=== PATIENT | male | born 1965 | race Two or more races ===

== ENCOUNTER 2018-10-17 17:10 | Inpatient (IN) | payer MEDICAID ==
[~2018-10-17] VITALS: Ht 167.6 cm; Wt 77.6 kg
--- NOTE | 2018-10-17 17:58 | NUR ---
initial contact with pt no acute distress , BIB RA , placed on cardaic monitor , VS stable as noted, denies complaints at present, IV LAC # 18 started by EMS - draws blood and flushes easily - labd drawn and placed on stand by, waiting for MD dela cruz
[2018-10-17 18:20] LABS: BASOPHILS % (AUTO) 0.5 % (0.0-2.0); EOSINOPHILS % (AUTO) 3.7 % (0.0-6.0); HEMATOCRIT 31 % (39-51); HEMOGLOBIN 10.7 g/dL (13.5-17.5); LYMPHOCYTES # (AUTO) 1.8 /CMM (0.8-4.8); LYMPHOCYTES % (AUTO) 31.8 % (20.0-44.0); MEAN CORPUSCULAR HGB CONC 34 g/dl (31.0-36.0); MEAN CORPUSCULAR VOLUME 92 fL (80-96); MONOCYTES # (AUTO) 0.5 /CMM (0.1-1.30); NEUTROPHILS # (AUTO) 3.2 /CMM (1.8-8.9); PLATELET COUNT (AUTO) 265 /CMM (150-450); RED BLOOD CELL COUNT(AUTO) 3.38 MIL/uL (4.5-6.0); WHITE BLOOD COUNT (AUTO) 5.7 K/uL (4.3-11.0)
[2018-10-17] MEDS ORDERED: ASPIRIN 81 MG TAB.CHEW ONE (18:23)
[2018-10-17 18:27] LABS: CARBON DIOXIDE 27 mmol/L (21-32); CHLORIDE 107 mmol/L (98-107); CREATININE 1.9 mg/dL (0.6-1.3); GLUCOSE 97 mg/dL (74-106); POTASSIUM 5.2 mmol/L (3.5-5.1); SODIUM SERUM 139 mmol/L (136-145); UREA NITROGEN, BLOOD 40 mg/dL (7-18)
--- NOTE | 2018-10-17 18:27 | NUR ---
nasal swab for influenza A/B obtained and sent
[2018-10-17] MEDS ORDERED: ASPIRIN 81 MG TAB.CHEW PO ONE (18:30)
[2018-10-17] MEDS ORDERED: IV NS 0.9% 500 ML BAG IV ONE (18:30)
[2018-10-17] MEDS ORDERED: GABA-532 PO (18:46)
[2018-10-17] MEDS ORDERED: ESCI10TA PO (18:46)
[2018-10-17] MEDS ORDERED: PIOG45TA5 PO (18:46)
[2018-10-17] MEDS ORDERED: GLIP5TAB13 PO (18:46)
[2018-10-17] MEDS ORDERED: FERR325T23 PO (18:46)
[2018-10-17] MEDS ORDERED: MECL12.582 PO (18:46)
[2018-10-17] MEDS ORDERED: TAMS-12 PO (18:46)
--- NOTE | 2018-10-17 18:57 | NUR ---
urine sent to lab
[2018-10-17 19:01] LABS: APPEARANCE,URINE Clear (CLEAR); BILIRUBIN,URINE Negative (NEGATIVE); BLOOD, URINE Negative Ery/uL (NEGATIVE); COLOR,URINE Yellow (YELLOW); KETONES,URINE Trace (NEGATIVE); LEUKOCYTE ESTERASE ,URINE Negative (NEGATIVE); NITRITE, URINE Negative (NEGATIVE); PROTEIN,URINE 30 mg/dl (NEGATIVE); UGLUCOSE 100 MG/DL mg/dL (NEGATIVE); UROBILINOGEN,URINE 0.2 EU/dL (0.2)
--- NOTE | 2018-10-17 19:20 | NUR ---
report to Patricia Darby to assume care
--- NOTE | 2018-10-17 19:20 | NUR ---
RECEIVED REPORT FROM ROSA MARIA COHEN FOR DONG. PT RESTING COMFORTABLY IN BED. VITAL SIGNS STABLE. WILL CONTINUE TO MONITOR
[2018-10-17 19:36] LABS: BACTERIA,URINE Moderate /HPF (None Seen); RBC,URINE 0-2 /HPF (0-2); SQUAMOUS EPITHELIAL CELL,UR Moderate /HPF (None Seen)
[2018-10-17 19:37] LABS: HYALINE CASTS, URINE Moderate /LPF (None Seen); URINE AMORPHOUS URATE Many /HPF (None Seen)
[2018-10-17] MEDS ORDERED: CEFTRIAXONE 1 G in IV D5W 50 ML IV ONE (20:00)
[2018-10-17] MEDS ORDERED: CEFTRIAXONE 1GM BAG (ER ONLY) 50 ML IV ONE (20:21)
--- NOTE | 2018-10-17 21:32 | NUR ---
GAVE REPORT TO EBENEZER COHEN FOR DONG
[2018-10-17 21:40] VITALS: BP 129/82
--- NOTE | 2018-10-17 21:40 | NUR ---
RN NOTES RECEIVED PT. FROM ER WITH DX. OF ACUTE KIDNEY INJURY, RWANDAN SPEAKING, A/OX4. SR ON TELE MONITOR HR-75, ADMISSION INSTRUCTION WAS GIVEN WITH THE HELP OF MUSIC PROFESSOR , DENIES PAIN, NO SOB, CALL LIGHT WITHIN REACH, SIDERAILSUPX2, CONTINUE TO MONITOR
--- NOTE | 2018-10-17 21:40 | NUR ---
TRANSFERRED PT PER ACLS PROTOCOL
[2018-10-17] MEDS ORDERED: ONDANSETRON HCL/PF 4 MG/2 ML VIAL IVP PRN (22:00)
[2018-10-17] MEDS ORDERED: MAGNESIUM HYDROXIDE 30 ML UDC PO PRN (22:00)
[2018-10-17] MEDS ORDERED: Z GUARD REMEDY 2 OZ OINT TP PRN (22:00)
[2018-10-17] MEDS ORDERED: ZOLPIDEM TARTRATE 5 MG TABLET PO PRN (22:00)
[2018-10-17] MEDS ORDERED: HYDROCODONE/APAP 5/325MG 1 EACH TABLET PO PRN (22:00)
[2018-10-18] MEDS: IV NS 0.9% 1,000 ML IV PRN ×2 (00:13→20:35)
[2018-10-18 00:28] VITALS: BP 91/57
--- NOTE | 2018-10-18 01:00 | NUR ---
RN LILA OCHOA-MAIKEL CAME AND MADE ROUNDS, ORDER NOTED AND CARRIED OUT
[2018-10-18 04:00] VITALS: BP_SYST 110; BP_SYST 90; BP_SYST 91; BP_DIAS 45; BP_DIAS 55; BP_DIAS 70
--- NOTE | 2018-10-18 06:39 | NUR ---
RN NOTES AWAKE, MORNING CARE RENDERED, DENIES PAIN, NO SOB, CALL LIGHT WITHIN REACH, SIDERAILSUPX2, PT. NEEDS ATTENDED
--- NOTE | 2018-10-18 07:32 | NUR ---
RN OPENING NOTES PT WAS RECEIVED IN BED AT LOWEST AND LOCKED POSITION WITH SIDE RAILS UP X2, A/O X4 AZERI SPEAKING, BREATHING EVEN AND UNLABORED ON RA, NO S/S OF PAIN OR DISTRESS CURRENTLY NOTED, IV IS PATENT AND INTACT, SAFETY PRECAUTIONS IN PLACE, CALL LIGHT WITHIN REACH, WILL MONITOR ACCORDINGLY
[2018-10-18 07:51] LABS: BASOPHILS % (AUTO) 0.4 % (0.0-2.0); EOSINOPHILS % (AUTO) 4.1 % (0.0-6.0); HEMATOCRIT 29 % (39-51); HEMOGLOBIN 9.9 g/dL (13.5-17.5); LYMPHOCYTES % (AUTO) 40.7 % (20.0-44.0); MEAN CORPUSCULAR HGB CONC 34 g/dl (31.0-36.0); MEAN CORPUSCULAR VOLUME 92 fL (80-96); MONOCYTES # (AUTO) 0.4 /CMM (0.1-1.30); MONOCYTES % (AUTO) 8.1 % (2.0-12.0); NEUTROPHILS # (AUTO) 2.3 /CMM (1.8-8.9); NEUTROPHILS % (AUTO) 46.7 % (43.0-81.0); PLATELET COUNT (AUTO) 239 /CMM (150-450); RED BLOOD CELL COUNT(AUTO) 3.16 MIL/uL (4.5-6.0)
[2018-10-18 08:00] VITALS: BP 135/85
[2018-10-18 08:02] LABS: CALCIUM, SERUM 8.6 mg/dL (8.5-10.1); CREATININE 1.4 mg/dL (0.6-1.3); MAGNESIUM 1.9 mg/dL (1.8-2.4); PHOSPHORUS 3.6 mg/dL (2.5-4.9); POTASSIUM 4.9 mmol/L (3.5-5.1)
[2018-10-18] MEDS: glipiZIDE 5 MG TABLET PO SCH ×2 (08:03→16:02)
[2018-10-18] MEDS: GABAPENTIN 100 MG CAPSULE PO SCH ×2 (08:03→16:02)
[2018-10-18] MEDS: ESCITALOPRAM OXALATE (10 MG) 10 MG TABLET PO SCH (08:04)
[2018-10-18 08:55] LABS: IRON, SERUM 84 ug/dl (50-175); TOTAL IRON BINDING CAPACITY 292 ug/dl (250-450)
[2018-10-18] MEDS ORDERED: TAMSULOSIN 0.4 MG CAP.SR.24H PO SCH (09:00)
[2018-10-18] MEDS ORDERED: PIOGLITAZONE HCL 15 MG TABLET PO SCH (09:00)
[2018-10-18] MEDS ORDERED: FERROUS SULFATE (325 MG) 325 MG/TAB TABLET PO SCH (09:00)
[2018-10-18 09:07] LABS: FERRITIN 133 ng/mL (8-388); THYROID STIMULATING HORMONE 0.976 uIU/mL (0.358-3.74)
[2018-10-18] MEDS: ACETAMINOPHEN 325 MG TABLET PO PRN ×2 (09:12→15:23)
--- NOTE | 2018-10-18 09:15 | NUR ---
RN NOTES PT COMPLAINING OF A HEADACHE AT THIS TIME, PRN TYLENOL WAS GIVEN. WILL MONITOR ACCORDINGLY
--- NOTE | 2018-10-18 15:24 | NUR ---
RN NOTES PT COMPLAINING OF HEADACHE AGAIN AT THIS TIME, PRN TYLENOL WAS GIVEN. WILL MONITOR ACCORDINGLY
[2018-10-18 17:00] VITALS: BP 94/62
--- NOTE | 2018-10-18 17:27 | NUR ---
MS/PARENT AIDE PATIENT TRANSFERRED FROM MS 3 TO MS 2 IN STABLE CONDITION. A/O X 4, YAKUT SPEAKING. NO SIGNS OF ACUTE DISTRESS. NO COMPLAIN OF PAIN OR DISCOMFORT. ALL NEEDS ATTENDED TO. REPORT GIVEN BY NOEL MONTANEZ. CALL LIGHT WITHIN REACH. WILL CONTINUE TO MONITOR TO ENSURE SAFETY.
--- NOTE | 2018-10-18 17:38 | NUR ---
RN NOTE PT TRANSFERRED TO MS2 WITH REPORT GIVEN CHRISTINE AT THIS TIME
--- NOTE | 2018-10-18 18:02 | NUR ---
Patient primary language is Turkish. He is alert and pleasant, lives locally with spouse. He is ambulatory, uses a cane as needed, independent with adl's. His pcp is Dr. Daniel Zarco. Family involved and supportive. He plan to return home once discharge. Addendum: 10/18/18 at 1802 by JOHN WYATT RN Amended: Links added.
--- NOTE | 2018-10-18 18:08 | NUR ---
MS/RN CLOSING NOTE PATIENT IN BED IN STABLE CONDITION. A/O X 4. GREEK SPEAKING. NO SIGNS OF ACUTE DISTRESS. NO COMPLAIN OF PAIN OR DISCOMFORT. ALL NEEDS ATTENDED TO. CALL LIGHT WITHIN REACH. WILL ENDORSE TO NEXT SHIFT FOR CONTINUITY OF CARE.
--- NOTE | 2018-10-18 19:00 | NUR ---
RN NOTES RECEIVE PT IN THE BED A/O X 3 IN STABLE CONDITION, NOT IN DISTRESS, SAFETY MEASURES IN PLACE. WILL CONTINUE TO MONITOR.
[2018-10-18 19:58] VITALS: BP 134/74
[2018-10-18 20:00] VITALS: BP 134/74
[2018-10-18] MEDS ORDERED: DEXTROSE 50%-WATER 50 ML DISP.SYRIN IV PRN (20:00)
[2018-10-18] MEDS ORDERED: CEFTRIAXONE 1 G in IV D5W 50 ML IV SCH (20:00)
[2018-10-18] MEDS: BLOOD SUGAR DIAGNOSTIC 1 EACH STRIP IN SCH (21:20)
[2018-10-18] MEDS: INSULIN REGULAR, HUMAN 100 UNIT/ML 3 ML VIAL SQ PRN (21:20)
[2018-10-18] MEDS: TAMSULOSIN 0.4 MG CAP.SR.24H PO SCH (21:28)
[2018-10-19] MEDS: IV NS 0.9% 1,000 ML IV PRN ×3 (03:20→18:16)
[2018-10-19] MEDS: BLOOD SUGAR DIAGNOSTIC 1 EACH STRIP IN SCH ×4 (05:59→21:02)
[2018-10-19] MEDS: INSULIN REGULAR, HUMAN 100 UNIT/ML 3 ML VIAL SQ PRN ×3 (06:00→21:21)
[2018-10-19 06:34] LABS: BASOPHILS % (AUTO) 0.6 % (0.0-2.0); EOSINOPHILS % (AUTO) 4.8 % (0.0-6.0); HEMATOCRIT 31 % (39-51); HEMOGLOBIN 10.4 g/dL (13.5-17.5); LYMPHOCYTES # (AUTO) 2.3 /CMM (0.8-4.8); LYMPHOCYTES % (AUTO) 43.4 % (20.0-44.0); MEAN CORPUSCULAR HGB CONC 34 g/dl (31.0-36.0); MEAN CORPUSCULAR VOLUME 92 fL (80-96); MONOCYTES # (AUTO) 0.4 /CMM (0.1-1.30); MONOCYTES % (AUTO) 7.9 % (2.0-12.0); NEUTROPHILS # (AUTO) 2.3 /CMM (1.8-8.9); NEUTROPHILS % (AUTO) 43.3 % (43.0-81.0); PLATELET COUNT (AUTO) 242 /CMM (150-450); RED BLOOD CELL COUNT(AUTO) 3.36 MIL/uL (4.5-6.0); WHITE BLOOD COUNT (AUTO) 5.4 K/uL (4.3-11.0)
--- NOTE | 2018-10-19 06:35 | NUR ---
RN CLOSING NOTE PT IN BED ASLEEP AND EASILY AWAKEN 02 SAT 100% TOLERATING ROOM AIR. STABLE CONDITION, NOT IN DISTRESS. RESPIRATIONS EVEN AND UNLABORED. NURSING CARE RENDERED, NO COMPLAIN OF PAIN KEPT CLEAN AND DRY AND COMFORT, SAFETY MEASURES IN PLACE, CALL LIGHT WITHIN REACH. WILL ENDORSE TO SENIOR AUDIT MANAGER FOR DONG.
[2018-10-19 06:42] LABS: ALANINE AMINOTRANSFERASE 34 U/L (12-78); ALBUMIN 3.3 g/dL (3.4-5.0); ALKALINE PHOSPHATASE 81 U/L (46-116); ASPARTATE AMINOTRANSFERASE 17 U/L (15-37); BILIRUBIN,TOTAL 0.4 mg/dL (0.2-1.0); CALCIUM, SERUM 8.5 mg/dL (8.5-10.1); CARBON DIOXIDE 23 mmol/L (21-32); CHLORIDE 107 mmol/L (98-107); CREATININE 1.5 mg/dL (0.6-1.3); GLUCOSE 91 mg/dL (74-106); MAGNESIUM 1.8 mg/dL (1.8-2.4); PHOSPHORUS 3.4 mg/dL (2.5-4.9); POTASSIUM 4.3 mmol/L (3.5-5.1); SODIUM SERUM 140 mmol/L (136-145); TOTAL PROTEIN, SERUM 7.2 g/dL (6.4-8.2); UREA NITROGEN, BLOOD 29 mg/dL (7-18)
--- NOTE | 2018-10-19 07:16 | NUR ---
MS/RN OPENING NOTE PATIENT IN BED IN STABLE CONDITION. A/O X 4, KYRGYZ SPEAKING. NO SINGS OF ACUTE DISTRESS. NO COMPLAIN OF PAIN OR DISCOMFORT. ALL NEEDS ATTENDED TO. CALL LIGHT WITHIN REACH. WILL CONTINUE TO MONITOR TO ENSURE SAFETY.
[2018-10-19 08:00] VITALS: BP 141/83
[2018-10-19] MEDS: ESCITALOPRAM OXALATE (10 MG) 10 MG TABLET PO SCH (08:02)
[2018-10-19] MEDS: ACETAMINOPHEN 325 MG TABLET PO PRN (08:02)
[2018-10-19 16:00] VITALS: BP 148/85
--- NOTE | 2018-10-19 18:33 | NUR ---
MS/RN CLOSING NOTE PATIENT IN BED IN STABLE CONDITION. A/O X 4, DANISH SPEAKING. NO SIGNS OF ACUTE DISTRESS. NO COMPLAIN OF PAIN OR DISCOMFORT. ALL NEEDS ATTENDED TO. CALL LIGHT WITHIN REACH. WILL ENDORSE TO NEXT SHIFT FOR CONTINUITY OF CARE.
--- NOTE | 2018-10-19 19:00 | NUR ---
RN NOTES RECEIVE PT IN THE BED A/O X 3 IN STABLE CONDITION, NOT IN DISTRESS, SAFETY MEASURES IN PLACE. WILL CONTINUE TO MONITOR.
[2018-10-19 20:00] VITALS: BP 141/81
[2018-10-19 20:17] VITALS: BP 141/81
[2018-10-19] MEDS: TAMSULOSIN 0.4 MG CAP.SR.24H PO SCH (21:02)
--- NOTE | 2018-10-19 23:53 | NUR ---
PT REQUESTED TO CHECK HIS BS PER PT HE FEELS HIS BLOOD SUGAR IS LOW, RECHECKED SUGAR 40 MG/DL PT REQUESTED TO DRINK 8 OZ OF ORANGE JUICE WILL CONTINUE TO MONITOR Addendum: 10/20/18 at 0116 by ANNE-MARIE SORIA RN PER PT WANTS TO DRINK ORANGE JUICE FIRST BEFORE GIVING D50 DESPITE EXPLAINING RISKS AND BENEFITS WILL MONITOR
--- NOTE | 2018-10-20 00:06 | NUR ---
RECHECK BLOOD SUGAR 39 MG/DL PROTOCOL INITIATED PT AGREED. PT IN STABLE CONDITION
--- NOTE | 2018-10-20 00:24 | NUR ---
RECHECKED BLOOD SUGAR 157 MG/DL PT STABLE. PT VERBALIZED "I DON'T WANT INSULIN NO MORE" HEALTH EDUCATION PROVIDED PT VERBALIZED UNDERSTANDING.
[2018-10-20] MEDS: IV NS 0.9% 1,000 ML IV PRN (01:28)
[2018-10-20] MEDS: BLOOD SUGAR DIAGNOSTIC 1 EACH STRIP IN SCH (05:40)
--- NOTE | 2018-10-20 05:41 | NUR ---
MS RN NOTES PER PT REQUEST WANTS TO CHECK HIS BLOOD SUGAR NOW AM. HOSPITALIST AWARE
--- NOTE | 2018-10-20 06:00 | NUR ---
RN CLOSING NOTE AWAKE, WATCHING TV. STABLE CONDITION, AM CARE PROVIDED. NOT IN DISTRESS. 02 SAT 95% R.A. RESPIRATIONS EVEN AND UNLABORED. KEPT CLEAN AND DRY AND COMFORT,NURSING CARE RENDERED, NO COMPLAIN OF PAIN. SAFETY MEASURES IN PLACE, CALL LIGHT WITHIN REACH. WILL ENDORSE TO TUBE TURNER FOR DONG.
--- NOTE | 2018-10-20 06:24 | NUR ---
PT REFUSED AM INSULIN SLIDING SCALE OF 3 UNITS DESPITE EXPLAINING RISKS AND BENEFITS OFFERED 3 TIMES PT STILL REFUSE PER PT HE DOESN'T WANT INSULIN NO MORE. PT A/O X 4. BLOOD SUGAR 191 MG/DL
--- NOTE | 2018-10-20 07:51 | NUR ---
MS RN OPENING NOTE RECEIVED PATIENT IN BED ASLEEP AT THIS TIME. NO SOB OR DISTRESS NOTED ON ROOM AIR TOLERATING WELL AT 97 %. NO FACIAL GRIMACING NOTED FOR PAIN. IV ACCESS ON LEFT AC INTACT AND PATENT NO REDNESS OR SWELLING NOTED ON IV FLUIDS AT 150 ML/HR. BLOOD SUGAR CHECKS AND INSULIN TO BE GIVEN NEEDED. POSSIBLE DISCHARGE IN AM PER SUBWAY CAR REPAIRER NURSE. LABS THIS AM, RESULTS PENDING. WILL CONTINUE TO MONITOR
[2018-10-20 08:11] LABS: CALCIUM, SERUM 8.6 mg/dL (8.5-10.1); CREATININE 1.2 mg/dL (0.6-1.3)
[2018-10-20] MEDS: ESCITALOPRAM OXALATE (10 MG) 10 MG TABLET PO SCH (08:37)
--- NOTE | 2018-10-20 09:00 | NUR ---
MANAGER GREEN NOTE PATIENT DISCHARGE TO HOME IN STABLE CONDITION. ALERT AND ORIENTED x4. NO PAIN AT THIS TIME. NO SOB OR DISTRESS NOTED ON ROOM AIR TOLERATING WELL. ALL DUE MEDICATIONS GIVEN ORDERED. ALL NURSING CARE NEEDS ATTENDED TO NEEDED. IV REMOVED AND SKIN INTACT. ALL BELONGINGS WITH PATIENT UPON DISCHARGE. ALL DISCHARGE INSTRUCTIONS GIVEN TO PATIENT AND SON HAMMAD AT BEDSIDE, TEACH BACK RECEIVED. ABLE TO COMMUNICATE NEEDS. LEFT VIA PRIVATE CAR WITH SON
== END 2018-10-20 09:00 | disposition home or self-care (01) | DRG 469 ==
LOC: ER 17:13 → TELE 21:21 → MED 10-18 08:53 → MEDSG2 10-18 17:01
PROVIDERS: ADMIT Nurse Practitioner Acute Care; ATTEND Nurse Practitioner Acute Care
DX: N17.0 Acute kidney failure with tubular necrosis (principal); E11.21 Type 2 diabetes mellitus with diabetic nephropathy; E11.40 Type 2 diabetes mellitus with diabetic neuropathy, unspecified; E86.0 Dehydration; I95.1 Orthostatic hypotension; D63.8 Anemia in other chronic diseases classified elsewhere; E86.1 Hypovolemia; E87.5 Hyperkalemia; I10 Essential (primary) hypertension; N40.1 Benign prostatic hyperplasia with lower urinary tract symptoms; R33.8 Other retention of urine; E11.65 Type 2 diabetes mellitus with hyperglycemia; Z79.84 Long term (current) use of oral hypoglycemic drugs
CPT/HCPCS: 36415; 71045-TC; 80048-TC; 80053-TC; 80061-TC; 81000-TC; 82728-TC; 82962-TC; 83540-TC; 83605-TC; 83735-TC; 84100-TC; 84439-TC; 84443-TC; 84484-TC; 85025-TC; 85730-TC; 87040-TC; 87081-TC; 87086-TC; 87400; 93307-TC; G0378; J0696; J1815; J7030; J7060

== ENCOUNTER 2019-06-22 20:38 | Emergency (ER) | payer MEDICAID, MEDICARE ==
[~2019-06-22] VITALS: Ht 167.6 cm; Wt 74.4 kg
[~2019-06-22 20:38] MED LIST: ESCI10TA PO; FERR325T23 PO; GABA-532 PO; GLIP5TAB13 PO; MECL12.582 PO; PIOG45TA5 PO; TAMS-12 PO
--- NOTE | 2019-06-22 22:06 | NUR ---
BIB C/O ABDOMINAL PAIN SINCE 1499, IN BED, +N/V X1, AWAITING MED EVAL
[2019-06-22 22:26] LABS: BASOPHILS % (AUTO) 0.6 % (0.0-2.0); EOSINOPHILS % (AUTO) 0.8 % (0.0-6.0); HEMATOCRIT 32 % (39-51); HEMOGLOBIN 10.9 g/dL (13.5-17.5); LYMPHOCYTES # (AUTO) 1.2 /CMM (0.8-4.8); LYMPHOCYTES % (AUTO) 15.3 % (20.0-44.0); MEAN CORPUSCULAR HGB CONC 34 g/dl (31.0-36.0); MEAN CORPUSCULAR VOLUME 92 fL (80-96); MONOCYTES # (AUTO) 0.5 /CMM (0.1-1.30); NEUTROPHILS # (AUTO) 5.9 /CMM (1.8-8.9); NEUTROPHILS % (AUTO) 77.3 % (43.0-81.0); PLATELET COUNT (AUTO) 275 /CMM (150-450); RED BLOOD CELL COUNT(AUTO) 3.49 MIL/uL (4.5-6.0); WHITE BLOOD COUNT (AUTO) 7.6 K/uL (4.3-11.0)
[2019-06-22] MEDS ORDERED: ONDANSETRON HCL/PF 4 MG/2 ML VIAL IVP ONE (22:30)
[2019-06-22] MEDS ORDERED: MORPHINE SULFATE INJ 2 MG/ML DISP.SYRIN IV ONE (22:30)
[2019-06-22] MEDS ORDERED: IV NS 0.9% 500 ML BAG IV ONE (22:30)
--- NOTE | 2019-06-22 22:32 | NUR ---
PT TAKEN TO RADIOLOGY
[2019-06-22 22:35] LABS: CALCIUM, SERUM 9.4 mg/dL (8.5-10.1); CARBON DIOXIDE 27 mmol/L (21-32); CHLORIDE 103 mmol/L (98-107); CREATININE 2.2 mg/dL (0.6-1.3); GLUCOSE 250 mg/dL (74-106); SODIUM SERUM 139 mmol/L (136-145); UREA NITROGEN, BLOOD 38 mg/dL (7-18)
[2019-06-22 22:41] LABS: ALANINE AMINOTRANSFERASE 42 U/L (12-78); ALBUMIN 4.1 g/dL (3.4-5.0); ALKALINE PHOSPHATASE 93 U/L (46-116); ASPARTATE AMINOTRANSFERASE 19 U/L (15-37); BILIRUBIN,DIRECT 0.1 mg/dL (0.0-0.2); BILIRUBIN,TOTAL 0.6 mg/dL (0.2-1.0); LIPASE 62 U/L (73-393); TOTAL PROTEIN, SERUM 8.1 g/dL (6.4-8.2)
[2019-06-22] MEDS ORDERED: CEFTRIAXONE 1 G VIAL ONE (23:25)
[2019-06-22] MEDS ORDERED: KETOROLAC TROMETHAMINE INJ 30 MG/ML VIAL ONE (23:25)
[2019-06-22] MEDS ORDERED: ONDANSETRON HCL/PF - ER 4 MG/2 ML VIAL IV ONE (23:30)
[2019-06-22] MEDS ORDERED: KETOROLAC TROMETHAMINE INJ 30 MG/ML VIAL IV ONE (23:30)
[2019-06-22] MEDS ORDERED: CEFTRIAXONE 1 G in IV D5W 50 ML IV ONE (23:30)
[2019-06-22] MEDS ORDERED: ONDANSETRON HCL/PF 4 MG/2 ML VIAL ONE (23:50)
[2019-06-23 00:03] VITALS: BP 141/94
--- NOTE | 2019-06-23 00:03 | NUR ---
Patient discharged to home in stable condition. Written and verbal after care instructions given. Patient verbalizes understanding of instruction.
== END 2019-06-23 00:05 | disposition home or self-care (01) ==
LOC: ER 20:43
DX: N20.0 Calculus of kidney (principal); I10 Essential (primary) hypertension; E11.9 Type 2 diabetes mellitus without complications; E78.00 Pure hypercholesterolemia, unspecified; Z90.89 Acquired absence of other organs
CPT/HCPCS: 36415; 71045; 74176; 80048; 80076; 83690; 84484; 85025; 93005; 96365; 96375; 96376; 99284; J0696 ×2; J1885; J2405 ×2; J7060 ×2

== ENCOUNTER 2020-04-28 15:47 | Inpatient (IN) | payer MEDICARE ==
[~2020-04-28] VITALS: Ht 167.6 cm; Wt 80.7 kg
[~2020-04-28 15:47] MED LIST changes: +MECL-182 PO; -MECL12.582 PO
--- NOTE | 2020-04-28 16:05 | NUR ---
pt ambulatory w/ cane to er bed 10. pt states was sent here by pmd for elevated K+ level. pt endorses upper and lower extremity cramping and some mild chest discomfort. pt gowned and placed on monitor. stable vitals. awaiting md dela cruz.
--- NOTE | 2020-04-28 16:11 | NUR ---
iv line started blood drawn and sent to lab.
--- NOTE | 2020-04-28 16:19 | NUR ---
dr rolle at bedside for eval.
[2020-04-28 16:38] LABS: CALCIUM, SERUM 8.4 mg/dL (8.5-10.1); CREATININE 2.5 mg/dL (0.6-1.3); POTASSIUM 5.1 mmol/L (3.5-5.1)
[2020-04-28] MEDS ORDERED: LATA2.5D7 EACHEYE (16:57)
[2020-04-28] MEDS ORDERED: BRIM5DRO5 EACHEYE (16:57)
[2020-04-28] MEDS ORDERED: IV NS 0.9% 1,000 ML IV ONE ×3 (17:00→18:30)
--- NOTE | 2020-04-28 17:05 | NUR ---
1000L NS given via iv.
[2020-04-28] MEDS ORDERED: MAG HYDROX/AL HYDROX/SIMETH 30 ML UDC PO PRN (18:30)
[2020-04-28] MEDS ORDERED: Z GUARD REMEDY 2 OZ OINT TP PRN (18:30)
[2020-04-28] MEDS ORDERED: *INSULIN REGULAR(HUMULIN R)HUM 100 UNIT/ML VIAL SQ PRN (18:30)
[2020-04-28] MEDS ORDERED: ONDANSETRON HCL/PF 4 MG/2 ML VIAL IVP PRN (18:30)
[2020-04-28] MEDS ORDERED: INSULIN REGULAR, HUMAN 100 UNIT/ML 3 ML VIAL SQ PRN (18:30)
[2020-04-28] MEDS ORDERED: ACETAMINOPHEN 325 MG TABLET PO PRN (18:30)
[2020-04-28] MEDS ORDERED: MAGNESIUM HYDROXIDE 30 ML UDC PO PRN (18:30)
[2020-04-28] MEDS ORDERED: DEXTROSE 50%-WATER 50 ML DISP.SYRIN IV PRN (18:30)
[2020-04-28] MEDS ORDERED: HYDROCODONE/APAP 5/325MG 1 EACH TABLET PO PRN (18:30)
--- NOTE | 2020-04-28 18:30 | NUR ---
u/s tech at bedside for kidney ultrasound.
--- NOTE | 2020-04-28 19:26 | NUR ---
covid swab collected and sent to lab
--- NOTE | 2020-04-28 20:30 | NUR ---
ms 308-2
[2020-04-28 21:50] VITALS: BP 140/67
--- NOTE | 2020-04-28 21:50 | NUR ---
MS RN NOTES PATIENT ARRIVED ON FLOOR AT 2150. PT AMBULATED TO BED. ALERT AND ORIENTED X 3. BREATHING EVEN AND UNLABORED ON ROOM AIR. SHOWS NO SIGNS OF ACUTE RESPIRATORY DISTRESS, NO ACUTE PAIN. IV ON RAC 18G RUNNING NS AT 100ML/HR. SHOWS NO SIGNS OF INFILTRATION, NO REDNESS. BELONGINGS CHECKLIST COMPLETED. ASK PT REGARDING SKIN ASSESSMENT AND SAID "EVERYTHING OKAY, NO CHECK". SKIN APPEARS TO BE INTACT. REORIENTED TO ROOM AND UNIT. SAFETY PRECAUTIONS IN PLACE. BED IN LOWEST POSITION, LOCKED, AND CALL LIGHT KEPT WITHIN REACH. WILL CONTINUE TO MONITOR.
[2020-04-28 22:00] VITALS: BP 140/67
[2020-04-28] MEDS: BLOOD SUGAR DIAGNOSTIC 1 EACH STRIP VI SCH (22:12)
[2020-04-28] MEDS: IV NS 0.9% 1,000 ML IV SCH (22:13)
[2020-04-28] MEDS: LATANOPROST EYE DROP 0.005% 2.5 ML BOTTLE EACHEYE SCH (22:33)
[2020-04-29] MEDS: IV NS 0.9% 1,000 ML IV SCH ×3 (05:40→23:43)
[2020-04-29 06:37] LABS: BASOPHILS % (AUTO) 0.5 % (0.0-2.0); EOSINOPHILS % (AUTO) 6.1 % (0.0-6.0); HEMATOCRIT 29 % (39-51); HEMOGLOBIN 9.6 g/dL (13.5-17.5); LYMPHOCYTES # (AUTO) 1.7 /CMM (0.8-4.8); LYMPHOCYTES % (AUTO) 42.8 % (20.0-44.0); MEAN CORPUSCULAR HGB CONC 33 g/dl (31.0-36.0); MEAN CORPUSCULAR VOLUME 95 fL (80-96); MONOCYTES # (AUTO) 0.4 /CMM (0.1-1.30); MONOCYTES % (AUTO) 9.6 % (2.0-12.0); NEUTROPHILS # (AUTO) 1.6 /CMM (1.8-8.9); PLATELET COUNT (AUTO) 203 /CMM (150-450); RED BLOOD CELL COUNT(AUTO) 3.04 MIL/uL (4.5-6.0)
[2020-04-29 07:00] LABS: CALCIUM, SERUM 8.4 mg/dL (8.5-10.1); CREATININE 1.7 mg/dL (0.6-1.3); MAGNESIUM 2.1 mg/dL (1.8-2.4); PHOSPHORUS 3.5 mg/dL (2.5-4.9); POTASSIUM 4.3 mmol/L (3.5-5.1)
[2020-04-29] MEDS: BLOOD SUGAR DIAGNOSTIC 1 EACH STRIP VI SCH ×4 (07:00→21:03)
--- NOTE | 2020-04-29 07:04 | NUR ---
MS RN NOTES PATIENT IN BED, ALERT AND ORIENTED X 3. BREATHING EVEN AND UNLABORED ON ROOM AIR. SHOWS NO SIGNS OF ACUTE RESPIRATORY DISTRESS, NO ACUTE PAIN. IV ON RAC 18G RUNNING NS AT 100ML/HR. SHOWS NO SIGNS OF INFILTRATION. ALL DUE MEDICATIONS GIVEN. SAFETY PRECAUTIONS IN PLACE. BED IN LOWEST POSITION, LOCKED, AND CALL LIGHT KEPT WITHIN REACH. WILL ENDORSE TO ONCOMING NURSE.
--- NOTE | 2020-04-29 07:40 | NUR ---
MS RN NOTES RECEIVED PT IN BED, ASLEEP, EASILY AROUSED, A/O X4, INDONESIAN SPEAKING. PT TOLERATING RA, WITH NO ACUTE RESPIRATORY DISTRESS NOTED. PT DENIES ANY PAIN OR DISCOMFORT AT THIS TIME. IVF NS AT 100ML/HR TO RAC G18, INTACT AND FLUID INFUSING WELL. PT DENIES ANY QUESTIONS AT THIS TIME. CALL LIGHT KEPT WITHIN REACH. PT'S BED IN LOWEST, LOCKED POSITION, WITH SR X3. WILL CONTINUE PLAN OF CARE.
[2020-04-29 08:00] VITALS: BP 125/81
[2020-04-29] MEDS: TAMSULOSIN 0.4 MG CAP.SR.24H PO SCH (08:41)
[2020-04-29] MEDS: BRIMONIDINE TARTRATE OPHT SOLN 5 ML BOTTLE EACHEYE SCH ×2 (09:40→17:02)
[2020-04-29 16:00] VITALS: BP 102/63
--- NOTE | 2020-04-29 19:15 | NUR ---
MS RN NOTES PT REMAINS IN BED, AWAKE, A/O X4, FAROESE SPEAKING. PT TOLERATING RA, WITH NO ACUTE RESPIRATORY DISTRESS NOTED. PT DENIES ANY PAIN OR DISCOMFORT AT THIS TIME. IVF NS AT 100ML/HR TO RAC G18, INTACT AND FLUID INFUSING WELL. ALL NEEDS AND CARE ATTENDED. PT KEPT COMFORTABLE. CALL LIGHT KEPT WITHIN REACH. PT'S BED IN LOWEST, LOCKED POSITION, WITH SR X3. WILL ENDORSED TO INCOING NIGHT NURSE FOR DONG.
--- NOTE | 2020-04-29 19:55 | NUR ---
MS/RN OPENING NOTES RECEIVED PATIENT IN BED, RESTING IN BED, FINNISH SPEAKING, ABLE TO VERBALIZE NEEDS, ON ROOM AIR, ABLE TO AMBULATE TO THE BATHROOM WITH SUPERVISION, BELONGINGS WITHIN REACH, BED LOCKED, CALL LIGHTS WITHIN REACH, WILL MONITOR. IV SITE ON RIGHT AC WITH IV INFUSING NS AT A RATE OF 100 ML/HR. PATIENT WITH SELF CARE ABILITY TO EDUCATE IMPORTANCE OF ASDHERANCE TO MEDICATION AND DIET.
[2020-04-29 20:00] VITALS: BP 129/76
[2020-04-29] MEDS: LATANOPROST EYE DROP 0.005% 2.5 ML BOTTLE EACHEYE SCH (21:03)
[2020-04-30] MEDS: BLOOD SUGAR DIAGNOSTIC 1 EACH STRIP VI SCH (06:12)
--- NOTE | 2020-04-30 06:27 | NUR ---
308-MS/RN NOTES PATIENT IN BEDABLE TO SLEEP DURING THE NIGHT, ALERT, ORIENTED X3, COOPERATIVE AND PARTICIPATIVE IN CARE, ATTENDED ALL NEEDS, IV FLUIDS BEING INFISED ON RIGHT WRIST GAUGE 22 PATENT, OFFERED AND PROVIDED FLUIDS, BED LOCKED, CALL LIGHTS WITHIN REACH, WILL ENDORSE TO AM RN FOR DONG,
--- NOTE | 2020-04-30 07:04 | NUR ---
MS RN NOTES RECEIVED PT. AWAKE IN BED AT THIS TIME, A/OX4, CITIZEN [place] SPEAKING, NO SOB NOTED, NO C/O PAIN AT THIS TIME, NO S/S OF ANY ANY ACUTE DISTRESS. IV ACCESS IN R-WRIST G#22, INTACT, PATENT AND FLUSHING WELL. PT SATURATING WELL ON RA. ASPIRATION AND SAFETY PRECAUTIONS IN PLACE. BED IN LOWEST LOCKED POSITION, SIDE RAILS UP X2, HOB ELEVATED TO SEMI FOWLERS POSITION, CALL LIGHT WITHIN REACH. WILL CONTINUE TO MONITOR
[2020-04-30 07:56] VITALS: BP 102/68
[2020-04-30 08:11] LABS: BASOPHILS % (AUTO) 0.5 % (0.0-2.0); EOSINOPHILS % (AUTO) 4.7 % (0.0-6.0); HEMATOCRIT 30 % (39-51); HEMOGLOBIN 9.9 g/dL (13.5-17.5); LYMPHOCYTES # (AUTO) 1.5 /CMM (0.8-4.8); LYMPHOCYTES % (AUTO) 36.8 % (20.0-44.0); MEAN CORPUSCULAR HGB CONC 33 g/dl (31.0-36.0); MEAN CORPUSCULAR VOLUME 95 fL (80-96); MONOCYTES # (AUTO) 0.3 /CMM (0.1-1.30); MONOCYTES % (AUTO) 7.5 % (2.0-12.0); NEUTROPHILS # (AUTO) 2.1 /CMM (1.8-8.9); NEUTROPHILS % (AUTO) 50.5 % (43.0-81.0); PLATELET COUNT (AUTO) 206 /CMM (150-450); RED BLOOD CELL COUNT(AUTO) 3.19 MIL/uL (4.5-6.0); WHITE BLOOD COUNT (AUTO) 4.1 K/uL (4.3-11.0)
[2020-04-30 08:25] LABS: ALBUMIN 3.4 g/dL (3.4-5.0); BILIRUBIN,TOTAL 0.5 mg/dL (0.2-1.0); CALCIUM, SERUM 8.4 mg/dL (8.5-10.1); CREATININE 1.6 mg/dL (0.6-1.3); POTASSIUM 4.5 mmol/L (3.5-5.1); TOTAL PROTEIN, SERUM 6.9 g/dL (6.4-8.2)
[2020-04-30] MEDS: TAMSULOSIN 0.4 MG CAP.SR.24H PO SCH (09:09)
[2020-04-30] MEDS: BRIMONIDINE TARTRATE OPHT SOLN 5 ML BOTTLE EACHEYE SCH (09:09)
[2020-04-30] MEDS: IV NS 0.9% 1,000 ML IV SCH (10:38)
--- NOTE | 2020-04-30 11:45 | NUR ---
MACHINE FUR CLEANER NOTES PATIENT DISCHARGED TO HOME AT TIME. PT IN STABLE CONDITION. ALL CARE, NEEDS, TREATMENT AND MEDICATIONS ADMINISTERED ANTICIPATED PER ORDER. DISCHARGE INSTRUCTIONS PROVIDED AND PT VERBALIZE UNDERSTANDING. IV ACCESS IN RIGHT WRIST REMOVED, PRESSURE APPLIED, SECURED WITH TAPE AND GAUZE. NO SIGN OF BLEEDING NOTED, NO S/S OF INFILTRATION NOTED. ALL BELONGINGS ACCOUNTED FOR, SIGNED BY PATIENT AND FILED IN CHART. PT ACCOMPANIED BY WHEEL CHAIR TO LOBBY BY WALT ARELLANO. PT PICKED UP BY [facility] [place], SON IN PRIVATE CAR
== END 2020-04-30 11:50 | disposition home or self-care (01) | DRG 684 ==
LOC: ER 15:57 → TELE 20:55 → MED 04-29 01:17
PROVIDERS: ADMIT Internal Medicine; ATTEND Internal Medicine
DX: N17.9 Acute kidney failure, unspecified (principal); E11.22 Type 2 diabetes mellitus with diabetic chronic kidney disease; E87.5 Hyperkalemia; F32.9 Major depressive disorder, single episode, unspecified; N18.9 Chronic kidney disease, unspecified; Z79.84 Long term (current) use of oral hypoglycemic drugs; I12.9 Hypertensive chronic kidney disease with stage 1 through stage 4 chronic kidney disease, or unspecified chronic kidney disease; N40.0 Benign prostatic hyperplasia without lower urinary tract symptoms; D63.8 Anemia in other chronic diseases classified elsewhere; E11.40 Type 2 diabetes mellitus with diabetic neuropathy, unspecified
CPT/HCPCS: 36415; 76770-TC; 80048-TC; 80053-TC; 82962-TC; 83735-TC; 84100-TC; 85025-TC; 87081-TC; G0378; J1815; J7030

== ENCOUNTER 2020-09-02 08:33 | Inpatient (IN) | payer MEDICARE ==
[~2020-09-02] VITALS: Ht 167.6 cm; Wt 72.6 kg
[~2020-09-02 08:33] MED LIST changes: +BRIM5DRO5 EACHEYE; +LATA2.5D15 EACHEYE
--- NOTE | 2020-09-02 08:45 | NUR ---
pt [id number], FROM HOME C/O PROGRESSIVE WEAKNESS X2 WEEKS, + N/V. vs checked. awaiting md dela cruz
[2020-09-02] MEDS ORDERED: ONDANSETRON HCL/PF 4 MG/2 ML VIAL IVP ONE (09:00)
[2020-09-02] MEDS ORDERED: IV NS 0.9% 1,000 ML BAG IV ONE (09:00)
[2020-09-02] MEDS ORDERED: ONDANSETRON HCL/PF 4 MG/2 ML VIAL ONE (09:01)
[2020-09-02 09:13] LABS: EOSINOPHILS % (AUTO) 1.9 % (0.0-6.0); WHITE BLOOD COUNT (AUTO) 8.3 K/uL (4.3-11.0)
[2020-09-02 09:15] LABS: BASOPHILS % (AUTO) 0.1 % (0.0-2.0); HEMATOCRIT 34 % (39-51); HEMOGLOBIN 11.2 g/dL (13.5-17.5); LYMPHOCYTES # (AUTO) 1.1 /CMM (0.8-4.8); LYMPHOCYTES % (AUTO) 12.7 % (20.0-44.0); MEAN CORPUSCULAR HGB CONC 33 g/dl (31.0-36.0); MEAN CORPUSCULAR VOLUME 94 fL (80-96); MONOCYTES # (AUTO) 0.4 /CMM (0.1-1.30); MONOCYTES % (AUTO) 5.1 % (2.0-12.0); NEUTROPHILS # (AUTO) 6.7 /CMM (1.8-8.9); NEUTROPHILS % (AUTO) 80.2 % (43.0-81.0); PLATELET COUNT (AUTO) 649 /CMM (150-450); RED BLOOD CELL COUNT(AUTO) 3.62 MIL/uL (4.5-6.0)
[2020-09-02 09:29] LABS: ALANINE AMINOTRANSFERASE 15 U/L (12-78); ALBUMIN 2.3 g/dL (3.4-5.0); ALKALINE PHOSPHATASE 74 U/L (46-116); ASPARTATE AMINOTRANSFERASE 11 U/L (15-37); BILIRUBIN,DIRECT 0.1 mg/dL (0.0-0.2); BILIRUBIN,TOTAL 0.4 mg/dL (0.2-1.0); CALCIUM, SERUM 9.3 mg/dL (8.5-10.1); CARBON DIOXIDE 31 mmol/L (21-32); CHLORIDE 92 mmol/L (98-107); CREATININE 2.3 mg/dL (0.6-1.3); POTASSIUM 4.6 mmol/L (3.5-5.1); SODIUM SERUM 131 mmol/L (136-145); TOTAL PROTEIN, SERUM 7.5 g/dL (6.4-8.2); UREA NITROGEN, BLOOD 41 mg/dL (7-18)
[2020-09-02 09:30] LABS: GLUCOSE 631 mg/dL (74-106)
--- NOTE | 2020-09-02 09:50 | NUR ---
xray by bedside
[2020-09-02 09:52] LABS: EOSINOPHILS % (MANUAL) 2 % (0-4); LYMPHOCYTES % (MANUAL) 6 % (16-48); MONOCYTES % (MANUAL) 4 % (0-11.0); NEUTROPHILS % (MANUAL) 88 (42-76)
--- NOTE | 2020-09-02 09:52 | NUR ---
covid swab done sent to lab
[2020-09-02] MEDS ORDERED: TRAZ-252 PO (09:55)
[2020-09-02] MEDS ORDERED: INSULIN REGULAR, HUMAN 100 UNIT/ML 10 ML VIAL ONE (09:55)
[2020-09-02] MEDS ORDERED: INSULIN REGULAR, HUMAN 100 UNIT/ML 10 ML VIAL SQ ONE (10:00)
--- NOTE | 2020-09-02 10:02 | NUR ---
[facility] CALLED ASSISTANT FINANCE DIRECTOR PAGED.
--- NOTE | 2020-09-02 10:26 | NUR ---
pt still unable to provide urine specimen at the moment, states he doesnt have the urge to pee right now
[2020-09-02] MEDS ORDERED: CEFTRIAXONE 1GM BAG (ER ONLY) 50 ML IV ONE ×2 (12:00→12:18)
[2020-09-02] MEDS ORDERED: AZITHROMYCIN 500 MG in IV D5W 250 ML IV ONE (12:00)
[2020-09-02 18:30] LABS: BILIRUBIN,URINE Negative (NEGATIVE); BLOOD, URINE Trace-lysed Ery/uL (NEGATIVE); COLOR,URINE YELLOW (YELLOW); LEUKOCYTE ESTERASE ,URINE Negative (NEGATIVE); NITRITE, URINE Negative (NEGATIVE); PROTEIN,URINE Trace mg/dl (NEGATIVE); UGLUCOSE >=1000 mg/dL (NEGATIVE); UROBILINOGEN,URINE 0.2 EU/dL (0.2)
--- NOTE | 2020-09-02 18:31 | NUR ---
urine collected sent to lab
[2020-09-02 18:33] LABS: BACTERIA,URINE Rare /HPF (None Seen); SQUAMOUS EPITHELIAL CELL,UR Few /HPF (None Seen); WBC,URINE NONE SEEN /HPF (0-3)
--- NOTE | 2020-09-02 18:38 | NUR ---
bs checked 372
--- NOTE | 2020-09-02 18:55 | NUR ---
ARIAS VIRUS PCR DONE AND SENT TO LAB
[2020-09-02] MEDS ORDERED: MECLIZINE HCL 12.5 MG TABLET PO PRN (21:00)
--- NOTE | 2020-09-02 23:18 | NUR ---
TRIED TO CALL TO GIVE REPORT, NURSE STATES SHE WILL CALL BACK IN 5MINUTES.
--- NOTE | 2020-09-02 23:41 | NUR ---
REPORT GIVEN TO DORYS COHEN FOR DONG.
[2020-09-03] VITALS: BP 126/81
[2020-09-03] MEDS ORDERED: ONDANSETRON HCL/PF 4 MG/2 ML VIAL IVP PRN (00:30)
[2020-09-03] MEDS ORDERED: Z GUARD REMEDY 2 OZ OINT TP PRN (00:30)
[2020-09-03] MEDS ORDERED: ACETAMINOPHEN 325 MG TABLET PO PRN (00:30)
[2020-09-03] MEDS: ENOXAPARIN SODIUM 40 MG/0.4 ML DISP.SYRIN SQ SCH ×2 (01:54→20:46)
[2020-09-03] MEDS: FERROUS SULFATE (325 MG) 325 MG/TAB TABLET PO SCH ×3 (01:55→20:45)
[2020-09-03] MEDS: TRAZODONE 50 MG TABLET PO SCH ×2 (01:55→20:45)
[2020-09-03] MEDS: METOCLOPRAMIDE HCL 10 MG/2 ML VIAL IV SCH ×4 (01:57→20:45)
[2020-09-03 04:00] VITALS: BP 121/81
--- NOTE | 2020-09-03 05:30 | NUR ---
RN notes Admitted a 55 year old male from ER with diagnosis of CAP via stretcher accompanied by two EMT staff with no distress noted. Breathing even and unlabored. On 2lpm O2 via nasal cannula tolerating well. Alert and oriented x 4 italian and marshallese speaking. Ambulatory, continent of bowel and bladder function. No complaint of pain or discomfort. Kept clean and dry. Will endorse to next shift for continuity of care.
--- NOTE | 2020-09-03 07:35 | NUR ---
ALTERATIONS WORKROOM CLERK OPENING NOTES RECEIVED PT AWAKE IN BED AT THIS TIME. PT AOX4. PT ABLE TO VERBALIZE NEEDS. NO SOB NOTED, NO S/S OF ANY ACUTE DISTRESS NOTED. NO C/O PAIN AT THIS TIME. RESPIRATIONS ARE EVEN AND UNLABORED. IV ACCESS NOTED IN LAC G#18, INTACT, PATENT AND FLUSHING WELL. PT ON EXTERNAL TELE CUSTOM DESIGNER READING SR/ST IN THE 100-101. ASPIRATION AND SAFETY PRECAUTION IN PLACE AND MAINTAINED AT ALL TIMES. BED IN LOWEST LOCKED POSITION, HOB ELEVATED, SIDE RAILS UP X 2, CALL LIGHT AND TABLE WITHIN REACH. WILL CONTINUE TO MONITOR
[2020-09-03 08:00] VITALS: BP 116/80
[2020-09-03] MEDS: PIOGLITAZONE HCL 15 MG TABLET PO SCH (08:39)
[2020-09-03] MEDS: glipiZIDE 5 MG TABLET PO SCH ×2 (08:39→17:26)
[2020-09-03] MEDS: TAMSULOSIN 0.4 MG CAP.SR.24H PO SCH (08:39)
[2020-09-03] MEDS: GABAPENTIN 100 MG CAPSULE PO SCH ×2 (08:39→16:40)
[2020-09-03] MEDS: BRIMONIDINE TARTRATE OPHT SOLN 5 ML BOTTLE EACHEYE SCH ×2 (09:41→16:40)
--- NOTE | 2020-09-03 10:30 | NUR ---
HAMMAD PT'S SON CALLED AND WAS UPDATED. WILL CONTINUE TO MONITOR
[2020-09-03 12:00] VITALS: BP 96/66
[2020-09-03] MEDS ORDERED: CEFTRIAXONE 1 G in IV D5W 50 ML IV SCH (12:00)
[2020-09-03] MEDS ORDERED: AZITHROMYCIN 500 MG in IV D5W 250 ML IV SCH (12:00)
[2020-09-03 16:00] VITALS: BP 117/79
--- NOTE | 2020-09-03 16:25 | NUR ---
patient is alert, primary language is Surinamese and speaks Afghan.He lives locally with spouse in an apartment. Spoke with son Santi [phone], states that patient was normally independent and ambulatory until two weeks prior to admission, when patient got COVID infection and since then he declined to difficulty getting up and unable to ambulate. He owns a cane and a walker, no homehealth hx. His pcp is at the [facility]. Family requested homehealth PT f/u when discharge and son can provide ride. Addendum: 09/03/20 at 1627 by JOHN WYATT RN Amended: Links added.
--- NOTE | 2020-09-03 16:44 | NUR ---
PT'S PCR IS POSTIVE, SOON CHARGE NURSE AND DR STRICKLAND MADE AWARE. NO NEW ORDERS AT THS TIME. WILL CONTINUE TO MONITOR
--- NOTE | 2020-09-03 18:50 | NUR ---
IMPORT/EXPORT FREIGHT FORWARDER CLOSING NOTES PT RESTING IN BED AT THIS TIME. PT REMAINED STABLE THROUGHOUT SHIFT. ALL CARE, NEED, MEDICATIONS AND TREATMENT ADMINISTERED ANTICIPATED PER ORDER. PT KEPT CLEAN AND DRY. ASPIRATION AND SAFETY PRECAUTION IN PLACE AND MAINTAINED AT ALL TIMES. BED IN LOWEST LOCKED POSITION, HOB ELEVATED, SIDE RAILS UP X 2, CALL LIGHT AND TABLE WITHIN REACH. WILL ENDORSE TO SCALEMAN NURSE FOR DONG
[2020-09-03 20:00] VITALS: BP 100/72
[2020-09-03] MEDS: LATANOPROST EYE DROP 0.005% 2.5 ML BOTTLE EACHEYE SCH ×3 (20:45→20:49)
--- NOTE | 2020-09-03 21:48 | NUR ---
SPOKE WITH SON CRISTOPHER SHEN PHONE: AND GAVE UPDATES ON HIS FATHERS CONDITION. QUESTIONS CONCERNS ADDRESSED.
--- NOTE | 2020-09-03 21:51 | NUR ---
HX OF DM; NO SLIDING SCALE COVERAGE; CONTACTED JOHN NEW ORDER FOR SS CONTACTED ADMITTED ATTORNEYS MD JOHN Díaz. INFORMED PATIENT DID NOT HAVE SLIDING SCALE ORDERED WITH HISTORY OF DIABETES AND THE MENTIONING OF SLIDING SCALE IN DNP EM NOTES. NEW ORDERS FOR MILD SLIDING SCALE ORDERED.
[2020-09-03] MEDS ORDERED: INSULIN REGULAR, HUMAN 100 UNIT/ML 3 ML VIAL SQ PRN ×2 (22:00→22:30)
[2020-09-03] MEDS ORDERED: BLOOD SUGAR DIAGNOSTIC 1 EACH STRIP IN SCH ×2 (22:00→22:30)
[2020-09-03] MEDS ORDERED: DEXTROSE 50%-WATER 50 ML DISP.SYRIN IV PRN ×3 (22:00→23:00)
[2020-09-03] MEDS: BLOOD SUGAR DIAGNOSTIC 1 EACH STRIP VI SCH (22:30)
[2020-09-03] MEDS ORDERED: INSULIN GLARGINE, 100 UNIT/ML CARTRIDGE SQ SCH (22:30)
[2020-09-03] MEDS ORDERED: *INSULIN REGULAR(HUMULIN R)HUM 100 UNIT/ML VIAL SQ PRN (22:30)
--- NOTE | 2020-09-03 22:46 | NUR ---
ptbs 408 updated [facility] new orders recieved to moderate sliding scale orders modified. patient to recieve 10 units of regular insulin tonight.
[2020-09-03] MEDS: *INSULIN REGULAR(HUMULIN R)HUM 100 UNIT/ML VIAL SQ PRN (22:54)
[2020-09-03] MEDS ORDERED: INSULIN REGULAR, HUMAN 100 UNIT/ML 3 ML VIAL ONE (23:37)
[2020-09-04] MEDS: METOCLOPRAMIDE HCL 10 MG/2 ML VIAL IV SCH ×4 (02:47→21:00)
--- NOTE | 2020-09-04 03:13 | NUR ---
pt c/o feeling weak or fatigued pt states "just feel funny, tired." . bs checked bs 327. spo2 checked saturating at 89% on ra. pt placed on 2lnc now saturating at 94% denies sob. rr pf 18. will cont to monitor.
[2020-09-04 04:00] VITALS: BP 110/76
--- NOTE | 2020-09-04 06:47 | NUR ---
PHARMACY CALLED; REQUESTED TO REMOVE DEXTROSE FROM ANTIBIOTICS PER PRINCIPAL ENGINEER; CÉSAR REQUEST called pharmacy and made request to have antibiotics to be mixed with ns instead of d5w per dr. tavarez request. pharmacist states he will look into it later today but reports that the amount of dextrose in the solution is very minimal.
--- NOTE | 2020-09-04 06:49 | NUR ---
RN LABOR DELIVERY CLOSING NOTES PT IN BED AT THIS TIME. SAFETY PRECAUTION IN PLACE . BED IN LOWEST LOCKED POSITION, HOB ELEVATED, SIDE RAILS UP X 2, CALL LIGHT AND TABLE WITHIN REACH. PT CURRENTLY WEARING 2 LNC IN O APPARENT RESP DISTRESS. ON TELE MONITORING. WILL ENDORSE TO ONCOMING SHIFT FOR DONG NURSE FOR DONG
--- NOTE | 2020-09-04 07:30 | NUR ---
TELE/RN OPENING NOTE Patient resting in bed, A&O x 4, Haitian speaking. No complaints of pain/discomfort at this time. Breathing even and non-labored on 2L oxygen via NC, saturating at 95-97%. On RA, patient is saturating at 88-90%. No cardiac distress noted, on tele monitor, reading SR 70. IV access noted on LAC #18, patent and intact, and flushing well. Sensation from all peripheral extremities intact. Side rails x2 up, bed locked to its lowest position, call light in hand. Will continue with current medical management.
[2020-09-04 07:52] LABS: BASOPHILS % (AUTO) 0.4 % (0.0-2.0); EOSINOPHILS % (AUTO) 1.2 % (0.0-6.0); HEMATOCRIT 33 % (39-51); HEMOGLOBIN 11.1 g/dL (13.5-17.5); LYMPHOCYTES # (AUTO) 1.3 /CMM (0.8-4.8); LYMPHOCYTES % (AUTO) 17.4 % (20.0-44.0); MEAN CORPUSCULAR HGB CONC 34 g/dl (31.0-36.0); MEAN CORPUSCULAR VOLUME 92 fL (80-96); MONOCYTES # (AUTO) 0.5 /CMM (0.1-1.30); MONOCYTES % (AUTO) 7.4 % (2.0-12.0); NEUTROPHILS # (AUTO) 5.5 /CMM (1.8-8.9); NEUTROPHILS % (AUTO) 73.6 % (43.0-81.0); PLATELET COUNT (AUTO) 414 /CMM (150-450); RED BLOOD CELL COUNT(AUTO) 3.59 MIL/uL (4.5-6.0); WHITE BLOOD COUNT (AUTO) 7.4 K/uL (4.3-11.0)
[2020-09-04 08:00] VITALS: BP 109/73
--- NOTE | 2020-09-04 08:00 | NUR ---
TELE/RN NOTE Patient's BS noted at 274, given 9 units of insulin. Will continue to monitor.
[2020-09-04 08:46] LABS: ALBUMIN 2.2 g/dL (3.4-5.0); BILIRUBIN,TOTAL 0.3 mg/dL (0.2-1.0); CALCIUM, SERUM 8.8 mg/dL (8.5-10.1); CREATININE 1.8 mg/dL (0.6-1.3); MAGNESIUM 2.1 mg/dL (1.8-2.4); PHOSPHORUS 3.9 mg/dL (2.5-4.9); POTASSIUM 3.6 mmol/L (3.5-5.1); TOTAL PROTEIN, SERUM 6.9 g/dL (6.4-8.2)
[2020-09-04 09:10] LABS: THYROID STIMULATING HORMONE 0.331 uIU/mL (0.358-3.74)
[2020-09-04] MEDS: BRIMONIDINE TARTRATE OPHT SOLN 5 ML BOTTLE EACHEYE SCH ×2 (09:38→17:33)
[2020-09-04] MEDS: BLOOD SUGAR DIAGNOSTIC 1 EACH STRIP VI SCH ×4 (09:38→21:34)
[2020-09-04] MEDS: glipiZIDE 5 MG TABLET PO SCH ×2 (09:39→17:27)
[2020-09-04] MEDS: TAMSULOSIN 0.4 MG CAP.SR.24H PO SCH (09:39)
[2020-09-04] MEDS: GABAPENTIN 100 MG CAPSULE PO SCH ×2 (09:39→17:27)
[2020-09-04] MEDS: PIOGLITAZONE HCL 15 MG TABLET PO SCH (09:39)
[2020-09-04] MEDS: FERROUS SULFATE (325 MG) 325 MG/TAB TABLET PO SCH ×2 (09:39→21:00)
[2020-09-04] MEDS: INSULIN REGULAR, HUMAN 100 UNIT/ML 3 ML VIAL SQ PRN ×3 (09:41→17:29)
[2020-09-04 12:00] VITALS: BP 98/64
--- NOTE | 2020-09-04 12:30 | NUR ---
TELE/RN NOTE Patient's blood sugar noted at 282, given 9 units of insulin. Will continue to monitor.
[2020-09-04] MEDS: CEFTRIAXONE 1 G in IV NS 0.9% 50 ML IV SCH (12:59)
--- NOTE | 2020-09-04 13:00 | NUR ---
TELE/RN NOTE No s/s of nausea and vomiting noted so far throughout shift. Will continue to monitor.
[2020-09-04] MEDS: DEXAMETHASONE SOD PHOSPHATE 10 MG/ML VIAL IV SCH (13:01)
[2020-09-04] MEDS: NS 0.9% IV SCH (13:57)
[2020-09-04] MEDS: AZITHROMYCIN IV SCH (13:57)
[2020-09-04 16:00] VITALS: BP 107/73
--- NOTE | 2020-09-04 19:30 | NUR ---
TELE/RN CLOSING NOTE Patient resting in bed, A&O x 4. All needs met and attended to. No complaints of pain/discomfort throughout shift. Breathing even and non-labored on 2L oxygen via NC. No respiratory distress noted. No cardiac distress noted, on tele monitor, reading SR 70s. IV access noted on LAC #18, patent and intact, and flushing well. Sensation from all peripheral extremities intact. Fall precautions maintained. Will endorse to shift mgr nurse.
--- NOTE | 2020-09-04 19:40 | NUR ---
TOOL RENTAL TECHNICIAN OPENING NOTES PATIENT AWAKE IN BED. A/OX4. ON 2L NC; PATIENT DENIES SOB; BREATHING IS EVEN AND UNLABORED. NO C/O PAIN AT THIS TIME. TELE MONITOR READING NSR, HEART RATE 81. IV PRESENT ON LEFT AC, SIZE 18, INTACT & PATENT, HEP LOCKED. CONTACT/DROPLET PRECAUTIONS IN PLACE FOR POSITIVE COVID 19. SAFETY MEASURES IN PLACE AND PATIENT'S NEEDS MET. BED LOCKED, HOB ELEVATED, SIDE RAILS X2, CALL LIGHT WITHIN REACH. WILL CONTINUE TO MONITOR.
[2020-09-04 20:00] VITALS: BP 90/60
--- NOTE | 2020-09-04 20:08 | NUR ---
MARINE ENGINE MECHANIC NOTE PER [place], PATIENT STATED THAT HE FELL GOING TO THE BATHROOM APPROXIMATELY AT 1800, UNWITNESSED. UPON ASSESSMENT, NO WOUNDS NOTED; PATIENT STATES THAT HE DID NOT HIT HEAD, BUT FELL ON HIS STOMACH; NO WOUNDS NOTED ON STOMACH; PATIENT DENIES ANY PAIN. NOTIFIED SON ROSALINO, AND AUTOMOBILE RADIATOR MECHANIC SWINE EXTENSION FIELD SPECIALIST, FADY LOPEZ. BED LOCKED, ALARM ON, SIDE RAILS X2, CALL LIGHT WITHIN REACH. WILL CONTINUE TO MONITOR.
[2020-09-04] MEDS: TRAZODONE 50 MG TABLET PO SCH (21:06)
[2020-09-04] MEDS: LATANOPROST EYE DROP 0.005% 2.5 ML BOTTLE EACHEYE SCH (21:06)
[2020-09-04] MEDS: ENOXAPARIN SODIUM 40 MG/0.4 ML DISP.SYRIN SQ SCH (21:07)
[2020-09-04] MEDS: *INSULIN REGULAR(HUMULIN R)HUM 100 UNIT/ML VIAL SQ PRN (21:33)
[2020-09-05] VITALS: BP 116/75
[2020-09-05] MEDS: METOCLOPRAMIDE HCL 10 MG/2 ML VIAL IV SCH ×4 (01:11→20:02)
[2020-09-05 04:00] VITALS: BP 111/78
[2020-09-05 05:59] LABS: BASOPHILS % (AUTO) 0.2 % (0.0-2.0); HEMATOCRIT 33 % (39-51); LYMPHOCYTES # (AUTO) 0.9 /CMM (0.8-4.8); LYMPHOCYTES % (AUTO) 8.6 % (20.0-44.0); MEAN CORPUSCULAR HGB CONC 34 g/dl (31.0-36.0); MEAN CORPUSCULAR VOLUME 91 fL (80-96); MONOCYTES # (AUTO) 0.5 /CMM (0.1-1.30); MONOCYTES % (AUTO) 5.4 % (2.0-12.0); NEUTROPHILS # (AUTO) 8.7 /CMM (1.8-8.9); NEUTROPHILS % (AUTO) 85.8 % (43.0-81.0); PLATELET COUNT (AUTO) 383 /CMM (150-450); RED BLOOD CELL COUNT(AUTO) 3.57 MIL/uL (4.5-6.0); WHITE BLOOD COUNT (AUTO) 10.1 K/uL (4.3-11.0)
[2020-09-05 06:20] LABS: ALBUMIN 2.2 g/dL (3.4-5.0); BILIRUBIN,TOTAL 0.3 mg/dL (0.2-1.0); CALCIUM, SERUM 8.8 mg/dL (8.5-10.1); CREATININE 1.6 mg/dL (0.6-1.3); POTASSIUM 4.1 mmol/L (3.5-5.1); TOTAL PROTEIN, SERUM 6.9 g/dL (6.4-8.2)
[2020-09-05] MEDS: INSULIN REGULAR, HUMAN 100 UNIT/ML 3 ML VIAL SQ PRN ×3 (06:28→16:46)
[2020-09-05] MEDS: BLOOD SUGAR DIAGNOSTIC 1 EACH STRIP VI SCH ×4 (06:31→22:26)
--- NOTE | 2020-09-05 07:30 | NUR ---
IT ARCHITECTURE CONSULTANT CLOSING NOTES PATIENT SLEEPING, AWAKENS TO NAME. A/OX4. ON 2L NC; NO S/S OF ACUTE RESPIRATORY DISTRESS; BREATHING IS EVEN AND UNLABORED. NO C/O PAIN. TELE MONITOR READING NSR. IV PRESENT ON RIGHT AC, SIZE 22, INTACT & PATENT, HEP LOCKED. SAFETY MEASURES IN PLACE AND PATIENT'S NEEDS MET. BED LOCKED, HOB ELEVATED, SIDE RAILS X2, CALL LIGHT WITHIN REACH. ENDORSED TO DAY SHIFT RN PLAN OF CARE.
--- NOTE | 2020-09-05 07:45 | NUR ---
INDUSTRIAL BOILERMAKER OPENING NOTES RECEIVED PT ON BED, AAOX3, ON O2 AT 2LPM, SATING 98% ON CONT MONITORING. NO PRESENCE OF ACUTE RESPIRATORY DISTRESS. ABD SOFT AND NON DISTENDED. DENIES PAIN AND DISCOMFORT. SKIN WARM TO TOUCH AND DRY. ON ISOLATION FOR + COVID19, PPE UTILIZED PER PROTOCOL. IV AT RIGHT AC #22 H/L PATENT IN FLUSHING, NO S/SX OF INFILTRATION. TELE MONITOR SHOWS NST 77 WITH EPSIODES OF DEPRESSED T WAVE. CONT TO MONITOR CARE. Addendum: 09/05/20 at 1340 by LUCIANO BUCK RN NSR 77 WITH EPISODES OF DEPRESSED T WAVE
[2020-09-05] MEDS: PIOGLITAZONE HCL 15 MG TABLET PO SCH (08:06)
[2020-09-05] MEDS: GABAPENTIN 100 MG CAPSULE PO SCH ×2 (08:06→16:10)
[2020-09-05] MEDS: BRIMONIDINE TARTRATE OPHT SOLN 5 ML BOTTLE EACHEYE SCH ×2 (08:06→16:10)
[2020-09-05] MEDS: glipiZIDE 5 MG TABLET PO SCH (08:06)
[2020-09-05] MEDS: FERROUS SULFATE (325 MG) 325 MG/TAB TABLET PO SCH ×2 (08:06→20:03)
[2020-09-05] MEDS: TAMSULOSIN 0.4 MG CAP.SR.24H PO SCH (08:06)
[2020-09-05] MEDS: DEXAMETHASONE SOD PHOSPHATE 10 MG/ML VIAL IV SCH (08:07)
[2020-09-05 10:31] VITALS: BP 124/77
[2020-09-05] MEDS: CEFTRIAXONE 1 G in IV NS 0.9% 50 ML IV SCH (11:45)
[2020-09-05] MEDS: AZITHROMYCIN IV SCH (12:47)
[2020-09-05] MEDS: NS 0.9% IV SCH (12:47)
[2020-09-05 13:14] VITALS: BP 108/71
[2020-09-05 16:54] VITALS: BP 114/78
[2020-09-05] MEDS ORDERED: REMDESIVIR (CHARGED) 200 MG, *LOADING DOSE 1 EA in IV NS 0.9% 210 ML IV ONE (18:00)
--- NOTE | 2020-09-05 18:03 | NUR ---
CAPACITY MANAGER NOTES PER PHARMACY, LISPRO NOT AVAILABLE. DR. CLEMENS NOTIFIED WITH NEW ORDER TO CHANGE NPH SAME ORDER. ORDER READ BACK, NOTED AND CARRIED OUT. RANDY FROM PHARMACY NOTIFIED. WILL SEND OUT.
[2020-09-05] MEDS ORDERED: INSULIN ASPART/LISPRO 100 UNIT/ML CARTRIDGE SQ SCH (18:30)
[2020-09-05 18:36] LABS: BILIRUBIN,URINE NEGATIVE (NEGATIVE); BLOOD, URINE MODERATE Ery/uL (NEGATIVE); COLOR,URINE YELLOW (YELLOW); LEUKOCYTE ESTERASE ,URINE NEGATIVE (NEGATIVE); NITRITE, URINE NEGATIVE (NEGATIVE); PH,URINE 5.5 (5.0-8.0); PROTEIN,URINE NEGATIVE (NEGATIVE); UGLUCOSE >=1000 mg/dL (NEGATIVE); UROBILINOGEN,URINE 0.2 EU/dL (0.2)
[2020-09-05] MEDS: INSULIN NPH, HUMAN ISOPHANE 100 UNIT/ML VIAL SQ SCH (18:44)
[2020-09-05 18:45] LABS: URIC ACID CRYSTALS,URINE Few /HPF (None Seen)
[2020-09-05 18:46] LABS: BACTERIA,URINE Few /HPF (None Seen); SQUAMOUS EPITHELIAL CELL,UR Rare /HPF (None Seen); WBC,URINE 0-2 /HPF (0-3)
[2020-09-05 18:50] LABS: CREATININE, URINE 68.3 MG/DL (30.0-125.0); URINE TOTAL PROTEIN 27.3 mg/dL (0-11.9)
--- NOTE | 2020-09-05 19:00 | NUR ---
RN OPENING NOTE RECEIVED PATIENT IN BED RESTING ALERT ORIENTED X4 VERBALLY RESPONSIVE BRITISH SPEAKER ONLY NO SOB NOT ACUTE DISTRESS NOTED,ON 2L OXYGEN VIA NASAL CANNULA, O2:96% ON MONITORING FOR COVID POSITIVE CONTACT/DROPLET ISOLATION,IV SITE IS ON RIGHT AC INTACT PATENT,SAFETY MEASURE IMPLEMENT BED ALARM IS ON BED IS IN LOW POSITON AND LOCKED,CALL LIGHT WITHIN REACH,CONTINUE TO MONITOR.
[2020-09-05 19:16] LABS: EOSINOPHIL,URINE None Seen
--- NOTE | 2020-09-05 19:30 | NUR ---
TRANSIT PLANNER CLOSING NOTES PT AAOX4, RESPONSIVE TO ALL STIMULI. TOLERATING O2 AT 2LPM SATING >92%, NO PRESENCE OF ACUTE RESPIRATORY DISTRESS. NO CRITICAL CHANGE OF CONDITION. TELE MONITOR SHOWS NSR. PT COVID-19 POSITIVE, PPE ULILIZED PER HOSPITAL PROTOCOL. ALL CONCERNS ATTENDED. BED IN LOW LOCKED, SRX2 UP FOR SAFETY, CALL LIGHT WITHIN REACHED. ENDORSED CARE TO NEXT SHIFT.
[2020-09-05 20:00] VITALS: BP 127/88
[2020-09-05] MEDS ORDERED: INSULIN GLARGINE, 100 UNIT/ML CARTRIDGE SQ SCH (22:00)
[2020-09-05] MEDS: LATANOPROST EYE DROP 0.005% 2.5 ML BOTTLE EACHEYE SCH (22:15)
[2020-09-05] MEDS: TRAZODONE 50 MG TABLET PO SCH (22:15)
[2020-09-05] MEDS: ENOXAPARIN SODIUM 40 MG/0.4 ML DISP.SYRIN SQ SCH (22:16)
[2020-09-05] MEDS: *INSULIN REGULAR(HUMULIN R)HUM 100 UNIT/ML VIAL SQ PRN (22:29)
[2020-09-06] VITALS: BP 105/72
[2020-09-06] MEDS: METOCLOPRAMIDE HCL 10 MG/2 ML VIAL IV SCH ×4 (01:17→20:06)
[2020-09-06 04:00] VITALS: BP 103/65
[2020-09-06 06:01] LABS: BASOPHILS % (AUTO) 0.1 % (0.0-2.0); EOSINOPHILS % (AUTO) 0.2 % (0.0-6.0); HEMATOCRIT 33 % (39-51); HEMOGLOBIN 10.9 g/dL (13.5-17.5); LYMPHOCYTES # (AUTO) 1.2 /CMM (0.8-4.8); LYMPHOCYTES % (AUTO) 13.3 % (20.0-44.0); MEAN CORPUSCULAR HGB CONC 34 g/dl (31.0-36.0); MEAN CORPUSCULAR VOLUME 92 fL (80-96); MONOCYTES # (AUTO) 0.6 /CMM (0.1-1.30); MONOCYTES % (AUTO) 6.5 % (2.0-12.0); NEUTROPHILS % (AUTO) 79.9 % (43.0-81.0); PLATELET COUNT (AUTO) 382 /CMM (150-450); RED BLOOD CELL COUNT(AUTO) 3.55 MIL/uL (4.5-6.0); WHITE BLOOD COUNT (AUTO) 8.8 K/uL (4.3-11.0)
[2020-09-06 06:13] LABS: ALBUMIN 2.2 g/dL (3.4-5.0); BILIRUBIN,DIRECT 0.1 mg/dL (0.0-0.2); BILIRUBIN,TOTAL 0.2 mg/dL (0.2-1.0); CREATININE 1.5 mg/dL (0.6-1.3); POTASSIUM 3.8 mmol/L (3.5-5.1); TOTAL PROTEIN, SERUM 6.7 g/dL (6.4-8.2)
--- NOTE | 2020-09-06 06:36 | NUR ---
RN CLOSING NOTE PATIENT REMAINS IN ALERT ORIENTED X4 VERBALLY RESPONSIVE NO SOB NOT ACUTE DISTRESS NOTED,ON 2L OXYGEN VIA NASAL CANNULA,O2:98% IV SITE IS RIGHT AC INTACT FLUSHED PATENT,ALL DUE MEDS GIVEN MD ORDERED KEPT CLEAN AND DRY ALL THE TIME,KEPT COMFORTABLE,KEPT CALL LIGHT WITHIN REACH,ALL NEEDS MET ENDORSE NEXT COMING SHIFT FOR CONTINUATION OF CARE
--- NOTE | 2020-09-06 07:30 | NUR ---
RECEIVED PATIENT IN BED. NO ACUTE DISTRESS NOTED. PATIENT ALERT & ORIENTED X4. PATIENT ON CURING SUPERVISOR, NORMAL SINUS RHYTHM NOTED. PATIENT RIGHT AC IV ACCESS INTACT, PATENT, FLUSHED WELL. PATIENT SAFETY MEASURES MAINTAINED. CALL LIGHT WITHIN REACH. WILL CONITNUE TO MONITOR.
[2020-09-06 08:00] VITALS: BP 108/70
[2020-09-06] MEDS: GABAPENTIN 100 MG CAPSULE PO SCH ×2 (08:24→17:35)
[2020-09-06] MEDS: FERROUS SULFATE (325 MG) 325 MG/TAB TABLET PO SCH ×2 (08:24→20:07)
[2020-09-06] MEDS: TAMSULOSIN 0.4 MG CAP.SR.24H PO SCH (08:24)
[2020-09-06] MEDS: BLOOD SUGAR DIAGNOSTIC 1 EACH STRIP VI SCH ×4 (08:25→21:44)
[2020-09-06] MEDS: BRIMONIDINE TARTRATE OPHT SOLN 5 ML BOTTLE EACHEYE SCH ×2 (08:25→17:35)
[2020-09-06] MEDS: DEXAMETHASONE SOD PHOSPHATE 10 MG/ML VIAL IV SCH (08:25)
[2020-09-06] MEDS: INSULIN NPH, HUMAN ISOPHANE 100 UNIT/ML VIAL SQ SCH ×2 (08:27→17:36)
[2020-09-06] MEDS: INSULIN REGULAR, HUMAN 100 UNIT/ML 3 ML VIAL SQ PRN ×3 (08:28→17:37)
[2020-09-06 10:12] LABS: PTH, INTACT 18 pg/mL (15-65)
[2020-09-06] MEDS: CEFTRIAXONE 1 G in IV NS 0.9% 50 ML IV SCH (11:50)
[2020-09-06] MEDS: NS 0.9% IV SCH (11:50)
[2020-09-06] MEDS: AZITHROMYCIN IV SCH (11:50)
[2020-09-06 12:00] VITALS: BP 111/78
[2020-09-06 16:00] VITALS: BP 106/79
[2020-09-06] MEDS ORDERED: INSULIN REGULAR, HUMAN 100 UNIT/ML 3 ML VIAL SQ PRN (16:00)
[2020-09-06] MEDS ORDERED: DEXTROSE 50%-WATER 50 ML DISP.SYRIN IV PRN (16:00)
[2020-09-06] MEDS ORDERED: BLOOD SUGAR DIAGNOSTIC 1 EACH STRIP IN SCH (17:30)
[2020-09-06] MEDS: REMDESIVIR (CHARGED) 100 MG in IV NS 0.9% 230 ML IV SCH (18:20)
--- NOTE | 2020-09-06 18:30 | NUR ---
PATIENT IN BED. NO ACUTE DISTRESS NOTED. PATIENT ALERT & ORIENTED X4. PATIENT ON DIRECTOR OF PROCUREMENT, NORMAL SINUS RHYTHM NOTED. PATIENT RIGHT AC IV ACCESS INTACT, PATENT, FLUSHED WELL. PATIENT SAFETY MEASURES MAINTAINED. CALL LIGHT WITHIN REACH. WILL ENDORSE PLAN OF CARE TO ONCOMING SHIFT
--- NOTE | 2020-09-06 19:25 | NUR ---
RN OPENING NOTE RECEIVED PATIENT IN BED RESTING ALERT ORIENTED X4 VERBALLY RESPONSIVE NO SOB NOTED ON 2L OXYGEN VIA NASAL CANNULA O2:99% COVID POSITIVE MONITORING FOR DROPLET/CONTACT ISOLATION,IV SITE IS ON RIGHT AC AMBULATORY WITH ASSIST,CONTINENT TO BOWEL AND BLADDER,CALL LIGHT WITHIN REACH,BED IN LOW POSITION AND LOCKED,CONTINUE TO MONITOR.
[2020-09-06 20:00] VITALS: BP 104/74
[2020-09-06] MEDS: LATANOPROST EYE DROP 0.005% 2.5 ML BOTTLE EACHEYE SCH (21:13)
[2020-09-06] MEDS: TRAZODONE 50 MG TABLET PO SCH (21:16)
[2020-09-06] MEDS: *INSULIN REGULAR(HUMULIN R)HUM 100 UNIT/ML VIAL SQ PRN (21:48)
[2020-09-06] MEDS: ENOXAPARIN SODIUM 40 MG/0.4 ML DISP.SYRIN SQ SCH (21:49)
[2020-09-06] MEDS: INSULIN GLARGINE, 100 UNIT/ML CARTRIDGE SQ SCH (21:52)
[2020-09-07] VITALS: BP 107/71
[2020-09-07] MEDS: METOCLOPRAMIDE HCL 10 MG/2 ML VIAL IV SCH ×4 (02:12→20:19)
[2020-09-07 04:00] VITALS: BP 95/66
[2020-09-07 06:00] LABS: BASOPHILS % (AUTO) 0.3 % (0.0-2.0); EOSINOPHILS % (AUTO) 0.3 % (0.0-6.0); HEMATOCRIT 31 % (39-51); HEMOGLOBIN 10.5 g/dL (13.5-17.5); LYMPHOCYTES # (AUTO) 1.3 /CMM (0.8-4.8); LYMPHOCYTES % (AUTO) 15.6 % (20.0-44.0); MEAN CORPUSCULAR HGB CONC 34 g/dl (31.0-36.0); MEAN CORPUSCULAR VOLUME 91 fL (80-96); MONOCYTES # (AUTO) 0.7 /CMM (0.1-1.30); MONOCYTES % (AUTO) 7.8 % (2.0-12.0); NEUTROPHILS # (AUTO) 6.4 /CMM (1.8-8.9); PLATELET COUNT (AUTO) 358 /CMM (150-450); RED BLOOD CELL COUNT(AUTO) 3.42 MIL/uL (4.5-6.0); WHITE BLOOD COUNT (AUTO) 8.4 K/uL (4.3-11.0)
[2020-09-07 06:22] LABS: ALBUMIN 2.2 g/dL (3.4-5.0); BILIRUBIN,DIRECT 0.1 mg/dL (0.0-0.2); BILIRUBIN,TOTAL 0.2 mg/dL (0.2-1.0); CALCIUM, SERUM 8.7 mg/dL (8.5-10.1); CREATININE 1.4 mg/dL (0.6-1.3); POTASSIUM 3.8 mmol/L (3.5-5.1); TOTAL PROTEIN, SERUM 6.4 g/dL (6.4-8.2)
--- NOTE | 2020-09-07 06:39 | NUR ---
RN CLOSING NOTE PATIENT REMAINS IS STABLE CONDITION NO SOB NOT ACUTE DISTRESS NOTED,ON 2L OXYGEN VIA NASAL CANNULA,O2:98% IV SITE IS ON RIGHT FOREARM INTACT PATENT ALL DUE MEDS GIVEN MD ORDERED KEEP COMFORTABLE,KEEP CLEAN AND DRY ALL THE TIME,KEPT CALL LIGHT WITHIN REACH,ENDORSE NEXT COMING SHIFT FOR CONTINUATION OF CARE.
[2020-09-07] MEDS: BLOOD SUGAR DIAGNOSTIC 1 EACH STRIP VI SCH ×4 (08:36→21:03)
[2020-09-07] MEDS: GABAPENTIN 100 MG CAPSULE PO SCH ×2 (08:59→16:21)
[2020-09-07] MEDS: DEXAMETHASONE SOD PHOSPHATE 10 MG/ML VIAL IV SCH (08:59)
[2020-09-07] MEDS: TAMSULOSIN 0.4 MG CAP.SR.24H PO SCH (08:59)
[2020-09-07] MEDS ORDERED: AZITHROMYCIN 250 MG TABLET PO SCH (09:00)
[2020-09-07] MEDS: FERROUS SULFATE (325 MG) 325 MG/TAB TABLET PO SCH ×2 (09:00→21:11)
[2020-09-07] MEDS: INSULIN NPH, HUMAN ISOPHANE 100 UNIT/ML VIAL SQ SCH ×2 (09:09→17:13)
[2020-09-07] MEDS: INSULIN REGULAR, HUMAN 100 UNIT/ML 3 ML VIAL SQ PRN ×3 (09:10→17:15)
[2020-09-07] MEDS: BRIMONIDINE TARTRATE OPHT SOLN 5 ML BOTTLE EACHEYE SCH ×2 (09:30→16:25)
--- NOTE | 2020-09-07 11:35 | NUR ---
RN OPENING NOTE PATIENT IS IN BED RESTING COMFORTABLE. PATIENT IN NO CUTE DISTRESS. PATIENT IS ON NASAL CANNULA ON 2L, OXYGEN SATURATION 98%. PATIENT BED ALARM IS ON. SAFETY PRECAUTIONS ARE IN PLACE. PATIENT BED IS LOCKED AND IN LOWEST POSITION. CALL LIGHT WITHIN REACH. WILL CONTINUE TO MONITOR.
[2020-09-07 12:00] VITALS: BP 106/60
[2020-09-07] MEDS: CEFTRIAXONE 1 G in IV NS 0.9% 50 ML IV SCH (12:18)
[2020-09-07 16:00] VITALS: BP 105/73
[2020-09-07] MEDS: REMDESIVIR (CHARGED) 100 MG in IV NS 0.9% 230 ML IV SCH (17:59)
--- NOTE | 2020-09-07 18:41 | NUR ---
RN CLOSING NOTE PATIENT IS IN BED RESTING COMFORTABLY. PATIENT IS IN NO ACUTE DISTRESS. PATIENT IS ON NASAL CANNULA ON 2L, OXYGEN SATURATION IS 98%. PATIENT KEPT CLEAN, DRY AND COMFORTABLE THROUGHOUT THE SHIFT. PATIENTS NEEDS WERE ADDRESSED. PATIENT BED IS LOCKED AND IN LOWEST POSITION. CALL LIGHT WITHIN REACH. ENDORSE TO THE TE[employer] EQUIPMENT NURSE FOR DONG.
[2020-09-07 20:00] VITALS: BP 105/70
--- NOTE | 2020-09-07 20:00 | NUR ---
outbound telemarketing representative note Received in bed, a/o x4. Breathing even and unlabored with no sob or acute distress noted on 2L of O2 via NC. Denies any pain or discomfort.RFA #20 patent and intact. All needs rendered. Call light within reach. Bed in lowest position. Will continue to monitor.
[2020-09-07] MEDS: *INSULIN REGULAR(HUMULIN R)HUM 100 UNIT/ML VIAL SQ PRN (21:06)
[2020-09-07] MEDS: ENOXAPARIN SODIUM 40 MG/0.4 ML DISP.SYRIN SQ SCH (21:07)
[2020-09-07] MEDS: INSULIN GLARGINE, 100 UNIT/ML CARTRIDGE SQ SCH (21:10)
[2020-09-07] MEDS: TRAZODONE 50 MG TABLET PO SCH (21:11)
[2020-09-07] MEDS: LATANOPROST EYE DROP 0.005% 2.5 ML BOTTLE EACHEYE SCH (21:13)
[2020-09-08] VITALS: BP 97/63
[2020-09-08] MEDS: METOCLOPRAMIDE HCL 10 MG/2 ML VIAL IV SCH ×4 (01:08→20:23)
[2020-09-08 04:00] VITALS: BP 102/71
[2020-09-08 06:03] LABS: BASOPHILS % (AUTO) 0.2 % (0.0-2.0); EOSINOPHILS % (AUTO) 0.3 % (0.0-6.0); HEMATOCRIT 32 % (39-51); HEMOGLOBIN 10.8 g/dL (13.5-17.5); LYMPHOCYTES # (AUTO) 1.4 /CMM (0.8-4.8); LYMPHOCYTES % (AUTO) 19.9 % (20.0-44.0); MEAN CORPUSCULAR HGB CONC 33 g/dl (31.0-36.0); MEAN CORPUSCULAR VOLUME 92 fL (80-96); MONOCYTES # (AUTO) 0.7 /CMM (0.1-1.30); MONOCYTES % (AUTO) 9.3 % (2.0-12.0); NEUTROPHILS # (AUTO) 4.9 /CMM (1.8-8.9); NEUTROPHILS % (AUTO) 70.3 % (43.0-81.0); PLATELET COUNT (AUTO) 316 /CMM (150-450); RED BLOOD CELL COUNT(AUTO) 3.52 MIL/uL (4.5-6.0)
[2020-09-08 06:17] LABS: ALBUMIN 2.2 g/dL (3.4-5.0); BILIRUBIN,DIRECT 0.1 mg/dL (0.0-0.2); BILIRUBIN,TOTAL 0.2 mg/dL (0.2-1.0); CALCIUM, SERUM 8.6 mg/dL (8.5-10.1); CREATININE 1.3 mg/dL (0.6-1.3); POTASSIUM 3.8 mmol/L (3.5-5.1); TOTAL PROTEIN, SERUM 6.3 g/dL (6.4-8.2)
--- NOTE | 2020-09-08 06:23 | NUR ---
MICROFILM EQUIPMENT INSPECTOR CLOSING NOTE Patient in bed. Awake. a/o x4. Breathing even and unlabored with no sob or acute distress noted on 2L of o2 via NC. O2 saturation 99%. Denies pain or discomfort. RFA iv site patent and intact. All needs rendered. Bed in lowest position. Call light within reach. Will endorse to am nurse for continuity of care.
[2020-09-08 08:00] VITALS: BP 101/62
--- NOTE | 2020-09-08 08:00 | NUR ---
REHABILITATION CONSTRUCTION SPECIALIST NOTES Patient is alert and oreinted. He is breathing even and unlabored. Lung sounds cta.Not in any acute distress. On 02 2lpm via n/c with 02 saturation of 97%. He is not in any pain or discomfort. Bed is in lowest position. Call light with in reach. Will continue to monitor.
[2020-09-08] MEDS: BLOOD SUGAR DIAGNOSTIC 1 EACH STRIP VI SCH ×4 (09:06→21:28)
[2020-09-08] MEDS: BRIMONIDINE TARTRATE OPHT SOLN 5 ML BOTTLE EACHEYE SCH ×2 (09:07→18:14)
[2020-09-08] MEDS: DEXAMETHASONE SOD PHOSPHATE 10 MG/ML VIAL IV SCH (09:08)
[2020-09-08] MEDS: TAMSULOSIN 0.4 MG CAP.SR.24H PO SCH (09:09)
[2020-09-08] MEDS: FERROUS SULFATE (325 MG) 325 MG/TAB TABLET PO SCH ×2 (09:09→21:09)
[2020-09-08] MEDS: GABAPENTIN 100 MG CAPSULE PO SCH ×2 (09:09→18:14)
[2020-09-08] MEDS: INSULIN NPH, HUMAN ISOPHANE 100 UNIT/ML VIAL SQ SCH ×2 (09:20→18:57)
[2020-09-08 12:00] VITALS: BP 101/71
[2020-09-08] MEDS: CEFTRIAXONE 1 G in IV NS 0.9% 50 ML IV SCH (12:58)
[2020-09-08] MEDS: INSULIN REGULAR, HUMAN 100 UNIT/ML 3 ML VIAL SQ PRN ×2 (12:59→18:47)
[2020-09-08 14:42] LABS: *SPE A/G RATIO 0.6 (0.7-1.7); *SPE ALBUMIN 2.4 g/dL (2.9-4.4); *SPE ALPHA-1-GLOBULIN 0.2 g/dL (0.0-0.4); *SPE ALPHA-2-GLOBULIN 1.4 g/dL (0.4-1.0); *SPE GLOBULIN, TOTAL 3.7 g/dL (2.2-3.9); *SPE M-SPIKE Not Observed g/dL (Not Observed); *SPEGAMMA GLOBULIN 1.2 g/dL (0.4-1.8)
[2020-09-08 16:00] VITALS: BP 107/69
--- NOTE | 2020-09-08 18:00 | NUR ---
PT BS 452, 15 U ADMIN, HYDRAULIC PRESS TENDER SOBIA CLEMENS NOTIFIED, NO FURTHER ORDERS
--- NOTE | 2020-09-08 18:55 | NUR ---
DIRECTOR MULTIMEDIA CLOSING NOTES Patient is alert and oriented. He is breathing even and unlabored. Lung sounds cta. Resident is on 02 2lpm via nc with o2 sat of 97%. Patient RFA Iv intact and patent. No c/o pain or discomfort. Fall and safety education provided. Will continue to monitor. Call light within reach.
[2020-09-08] MEDS: REMDESIVIR (CHARGED) 100 MG in IV NS 0.9% 230 ML IV SCH (19:44)
[2020-09-08 20:00] VITALS: BP 114/79
--- NOTE | 2020-09-08 20:00 | NUR ---
tile setter supervisor Opening note Received pt in bed, a/o x4. Breathing even and unlabored in RA. 02 saturation 98%. No sob or acute distress noted. Denies any pain or discomfort. RFA #20 patent and intact. All needs rendered. Call light within reach. Bed in lowest position. Will continue to monitor
[2020-09-08] MEDS: TRAZODONE 50 MG TABLET PO SCH (21:27)
[2020-09-08] MEDS: LATANOPROST EYE DROP 0.005% 2.5 ML BOTTLE EACHEYE SCH (21:27)
[2020-09-08] MEDS: INSULIN GLARGINE, 100 UNIT/ML CARTRIDGE SQ SCH (21:28)
[2020-09-08] MEDS: ENOXAPARIN SODIUM 40 MG/0.4 ML DISP.SYRIN SQ SCH (21:31)
[2020-09-08] MEDS: *INSULIN REGULAR(HUMULIN R)HUM 100 UNIT/ML VIAL SQ PRN (21:35)
[2020-09-09] VITALS: BP 96/64
[2020-09-09] MEDS: METOCLOPRAMIDE HCL 10 MG/2 ML VIAL IV SCH ×4 (02:48→20:55)
[2020-09-09 04:00] VITALS: BP 100/51
--- NOTE | 2020-09-09 06:27 | NUR ---
debt recovery officer Closing note Pt in bed, asleep but easily arousable. Breathing even and unlabored in room air. Sinus Rhythm on stemhole borer. HR 76. O2 saturation at 98%. Denies any pain or discomfort. Right forearm IV site patent and intact. All needs rendered. Call light within reach. Will endorse to am nurse for continuity of care.
[2020-09-09 07:17] LABS: BASOPHILS % (AUTO) 0.2 % (0.0-2.0); EOSINOPHILS % (AUTO) 0.3 % (0.0-6.0); HEMATOCRIT 31 % (39-51); HEMOGLOBIN 10.5 g/dL (13.5-17.5); LYMPHOCYTES # (AUTO) 1.5 /CMM (0.8-4.8); LYMPHOCYTES % (AUTO) 21.6 % (20.0-44.0); MEAN CORPUSCULAR HGB CONC 33 g/dl (31.0-36.0); MEAN CORPUSCULAR VOLUME 92 fL (80-96); MONOCYTES # (AUTO) 0.7 /CMM (0.1-1.30); MONOCYTES % (AUTO) 9.9 % (2.0-12.0); NEUTROPHILS # (AUTO) 4.7 /CMM (1.8-8.9); PLATELET COUNT (AUTO) 304 /CMM (150-450); RED BLOOD CELL COUNT(AUTO) 3.41 MIL/uL (4.5-6.0)
[2020-09-09 07:23] LABS: CALCIUM, SERUM 8.8 mg/dL (8.5-10.1); CREATININE 1.3 mg/dL (0.6-1.3); POTASSIUM 3.9 mmol/L (3.5-5.1)
[2020-09-09 08:00] VITALS: BP 92/58
[2020-09-09] MEDS: BLOOD SUGAR DIAGNOSTIC 1 EACH STRIP VI SCH ×4 (08:02→22:27)
[2020-09-09] MEDS: DEXAMETHASONE SOD PHOSPHATE 10 MG/ML VIAL IV SCH (08:35)
[2020-09-09] MEDS: FERROUS SULFATE (325 MG) 325 MG/TAB TABLET PO SCH ×2 (08:35→21:30)
[2020-09-09] MEDS: TAMSULOSIN 0.4 MG CAP.SR.24H PO SCH (08:35)
[2020-09-09] MEDS: GABAPENTIN 100 MG CAPSULE PO SCH ×2 (08:35→17:23)
[2020-09-09] MEDS: INSULIN NPH, HUMAN ISOPHANE 100 UNIT/ML VIAL SQ SCH ×2 (08:43→18:05)
[2020-09-09] MEDS: BRIMONIDINE TARTRATE OPHT SOLN 5 ML BOTTLE EACHEYE SCH ×2 (08:55→17:30)
[2020-09-09 09:02] LABS: ALBUMIN 2.2 g/dL (3.4-5.0); BILIRUBIN,DIRECT 0.1 mg/dL (0.0-0.2); BILIRUBIN,TOTAL 0.2 mg/dL (0.2-1.0); TOTAL PROTEIN, SERUM 6.4 g/dL (6.4-8.2)
[2020-09-09] MEDS: CEFTRIAXONE 1 G in IV NS 0.9% 50 ML IV SCH (11:26)
[2020-09-09 12:00] VITALS: BP 94/64
[2020-09-09] MEDS: INSULIN REGULAR, HUMAN 100 UNIT/ML 3 ML VIAL SQ PRN (13:29)
--- NOTE | 2020-09-09 14:01 | NUR ---
TELE/RN OPENING NOTES RECEIVED PATIENT ON BED ALERT AND ORIENTED X4. PATIENT IN NO APPARENT RESPIRATORY DISTRESS NOTED. NO SIGN AND SYMPTOM OF PAIN AT THIS TIME. TELE MONITOR. IN PLACED READING SINUS RHYTHM 78 BPM. WILL CONTINUE TO MONITOR.
[2020-09-09 16:00] VITALS: BP 98/59
[2020-09-09] MEDS: REMDESIVIR (CHARGED) 100 MG in IV NS 0.9% 230 ML IV SCH (17:18)
--- NOTE | 2020-09-09 18:41 | NUR ---
TELE/RN CLOSING NOTES PATIENT IS ON BED ALERT AND ORIENTED X4. PATIENT IN NO APPARENT RESPIRATORY DISTRESS NOTED. NO COMPLAINED OF PAIN. NOTED AT THIS TIME. IV ACCESS AT RIGHT FOREARM # 20 PATENT AND INTACT. TELE MONITOR IN PLACED SINUS RHYTHM 92 BPM. SEEN AND EXAMINED BY MD WITH ORDERS MADE AND CARRIED OUT. ALL DUE MEDICATIONS WAS GIVEN. SAFETY PRECAUTIONS WAS IN PLACED . SIDE RAILS UP X2. CALL LIGHT WITHIN REACH. WILL ENDORSED TO RAILROAD INSPECTOR FOR DONG.
--- NOTE | 2020-09-09 19:40 | NUR ---
RN OPENING NOTES RECEIVED PATIENT IN BED, ALERT AND ORIENTED X 4. NO RESPIRATORY DISTRESS NOTED. DENIES ANY PAIN. TELE MONITOR SHOWS SINUS RHYTHM HR 83. IV REMDISIVIR RUNNING WITH NO SIGNS OF INFILTRATION. ALL SAFETY MEASURES IMPLEMENTED PER PROTOCOL. BED LOCKED IN LOWEST POSITION. CALL LIGHT WITHIN REACH.
[2020-09-09 20:00] VITALS: BP 123/83
[2020-09-09] MEDS: TRAZODONE 50 MG TABLET PO SCH (21:30)
[2020-09-09] MEDS: ENOXAPARIN SODIUM 40 MG/0.4 ML DISP.SYRIN SQ SCH (21:31)
[2020-09-09] MEDS: LATANOPROST EYE DROP 0.005% 2.5 ML BOTTLE EACHEYE SCH (22:24)
[2020-09-09] MEDS: INSULIN GLARGINE, 100 UNIT/ML CARTRIDGE SQ SCH (22:30)
[2020-09-09] MEDS: *INSULIN REGULAR(HUMULIN R)HUM 100 UNIT/ML VIAL SQ PRN (22:31)
[2020-09-10] VITALS: BP 97/64
--- NOTE | 2020-09-10 01:00 | NUR ---
PATIENT SLEEPING COMFORTABLY. NO RESPIRATORY DISTRESS NOTED.
[2020-09-10] MEDS: METOCLOPRAMIDE HCL 10 MG/2 ML VIAL IV SCH ×4 (02:17→21:17)
[2020-09-10 04:00] VITALS: BP 94/62
[2020-09-10 06:43] LABS: BASOPHILS % (AUTO) 0.3 % (0.0-2.0); EOSINOPHILS % (AUTO) 0.2 % (0.0-6.0); HEMATOCRIT 32 % (39-51); HEMOGLOBIN 10.8 g/dL (13.5-17.5); LYMPHOCYTES # (AUTO) 1.5 /CMM (0.8-4.8); LYMPHOCYTES % (AUTO) 24.7 % (20.0-44.0); MEAN CORPUSCULAR HGB CONC 34 g/dl (31.0-36.0); MEAN CORPUSCULAR VOLUME 92 fL (80-96); MONOCYTES # (AUTO) 0.7 /CMM (0.1-1.30); MONOCYTES % (AUTO) 11.9 % (2.0-12.0); NEUTROPHILS # (AUTO) 3.8 /CMM (1.8-8.9); NEUTROPHILS % (AUTO) 62.9 % (43.0-81.0); PLATELET COUNT (AUTO) 298 /CMM (150-450); RED BLOOD CELL COUNT(AUTO) 3.51 MIL/uL (4.5-6.0)
--- NOTE | 2020-09-10 06:48 | NUR ---
RN CLOSING NOTES PATIENT IN BED, SLEEPING EASILY AROUSABLE BY VERBAL STIMULI. BREATHING EVEN AND UNLABORED. O2 SAT AT 95 % ON RA. DENIES SOB. TELE MONITOR SHOWS SR HR 75. DENIES PAIN. IV ON R FA PATENT AND INTACT. NO SIGNS OF HYPO/HYPERGLYCEMIA. CALL LIGHT WITHIN REACH. BED LOCKED IN LOWEST POSITION SIDE RAILS UP X 2. WILL ENDORSE TO UPCOMING NURSE FO DONG.
[2020-09-10 07:15] LABS: ALBUMIN 2.2 g/dL (3.4-5.0); BILIRUBIN,DIRECT 0.1 mg/dL (0.0-0.2); BILIRUBIN,TOTAL 0.2 mg/dL (0.2-1.0); CALCIUM, SERUM 8.9 mg/dL (8.5-10.1); CREATININE 1.4 mg/dL (0.6-1.3); POTASSIUM 4.2 mmol/L (3.5-5.1); TOTAL PROTEIN, SERUM 6.4 g/dL (6.4-8.2)
[2020-09-10] MEDS: BLOOD SUGAR DIAGNOSTIC 1 EACH STRIP VI SCH ×4 (07:48→21:20)
--- NOTE | 2020-09-10 07:49 | NUR ---
TELE/RN OPENING NOTES RECEIVED PATIENT ON BED ALERT AND ORIENTED X4. PATIENT IN NO APPARENT RESPIRATORY DISTRESS NOTED. NO COMPLAINED OF PAIN AT THIS TIME. TELE MONITOR IN PLACED READING SINUS RHYTHM 67 BPM. WILL CONTINUE TO MONITOR.
[2020-09-10 08:00] VITALS: BP 90/59
[2020-09-10] MEDS: TAMSULOSIN 0.4 MG CAP.SR.24H PO SCH (08:52)
[2020-09-10] MEDS: DEXAMETHASONE SOD PHOSPHATE 10 MG/ML VIAL IV SCH (08:53)
[2020-09-10] MEDS: FERROUS SULFATE (325 MG) 325 MG/TAB TABLET PO SCH ×2 (08:53→21:18)
[2020-09-10] MEDS: GABAPENTIN 100 MG CAPSULE PO SCH ×2 (08:53→17:31)
[2020-09-10] MEDS: INSULIN NPH, HUMAN ISOPHANE 100 UNIT/ML VIAL SQ SCH ×2 (08:55→17:00)
[2020-09-10] MEDS: BRIMONIDINE TARTRATE OPHT SOLN 5 ML BOTTLE EACHEYE SCH ×2 (08:58→17:31)
[2020-09-10 12:00] VITALS: BP 121/80
[2020-09-10 16:00] VITALS: BP 104/71
[2020-09-10] MEDS: INSULIN REGULAR, HUMAN 100 UNIT/ML 3 ML VIAL SQ PRN (17:01)
--- NOTE | 2020-09-10 18:56 | NUR ---
TELE/RN CLOSING NOTES PATIENT IS ON BED AWAKE ALERT AND ORIENTED X4. PATIENT IN NO APPARENT RESPIRATORY DISTRESS NOTED. NO COMPLAINED OF PAIN NOTED AT THIS TIME. SEEN AND EXAMINED BY MD WITH ORDERS MADE AND CARRIED OUT. ALL DUE MEDICATION WAS GIVE. ON TELE MONITOR READING SINUS RHYTHM WITH PVC 86 BPM. IV ACCESS AT RIGHT FOREARM # 20 PATENT AND INTACT. SAFETY PRECAUTIONS WAS IN PLACED. SIDE RAILS UP X 2. CALL LIGHT WITHIN REACH. WILL ENDORSED TO OSTEOLOGY TEACHER FOR DONG.
[2020-09-10 20:00] VITALS: BP 102/65
[2020-09-10] MEDS: *INSULIN REGULAR(HUMULIN R)HUM 100 UNIT/ML VIAL SQ PRN (21:12)
[2020-09-10] MEDS: ENOXAPARIN SODIUM 40 MG/0.4 ML DISP.SYRIN SQ SCH (21:14)
[2020-09-10] MEDS: INSULIN GLARGINE, 100 UNIT/ML CARTRIDGE SQ SCH (21:16)
[2020-09-10] MEDS: TRAZODONE 50 MG TABLET PO SCH (21:18)
[2020-09-10] MEDS: LATANOPROST EYE DROP 0.005% 2.5 ML BOTTLE EACHEYE SCH (21:19)
--- NOTE | 2020-09-10 21:52 | NUR ---
INFORMED DR MONROY RE: BLOOD SUGAR OG 401, REGULAR INSULIN 10 UNITS AND 17 UNITS LANTUS GIVEN.
[2020-09-10] MEDS ORDERED: INSULIN GLARGINE, 100 UNIT/ML CARTRIDGE SQ ONE (23:30)
[2020-09-11] VITALS: BP 98/67
[2020-09-11] MEDS: METOCLOPRAMIDE HCL 10 MG/2 ML VIAL IV SCH ×3 (02:35→14:09)
[2020-09-11 07:03] VITALS: BP 102/70
--- NOTE | 2020-09-11 07:40 | NUR ---
ADMINISTRATIVE LIAISON OPENING NOTES RECEIVED PATIENT RESTING IN BED A/OX4. PATIENT IN NO APPARENT RESPIRATORY DISTRESS NOTED. NO COMPLAINED OF PAIN AT THIS TIME. TELE MONITOR IN PLACED READING SINUS RHYTHM 65-75 BPM. WILL CONTINUE TO MONITOR.
[2020-09-11] MEDS: BLOOD SUGAR DIAGNOSTIC 1 EACH STRIP VI SCH ×2 (08:19→11:53)
[2020-09-11] MEDS: INSULIN REGULAR, HUMAN 100 UNIT/ML 3 ML VIAL SQ PRN (08:23)
[2020-09-11] MEDS: GABAPENTIN 100 MG CAPSULE PO SCH (08:48)
[2020-09-11] MEDS: FERROUS SULFATE (325 MG) 325 MG/TAB TABLET PO SCH (08:49)
[2020-09-11] MEDS: TAMSULOSIN 0.4 MG CAP.SR.24H PO SCH (08:49)
[2020-09-11] MEDS: DEXAMETHASONE SOD PHOSPHATE 10 MG/ML VIAL IV SCH (08:54)
[2020-09-11] MEDS: INSULIN NPH, HUMAN ISOPHANE 100 UNIT/ML VIAL SQ SCH (08:57)
[2020-09-11] MEDS: BRIMONIDINE TARTRATE OPHT SOLN 5 ML BOTTLE EACHEYE SCH (09:04)
[2020-09-11 11:14] VITALS: BP 108/72
[2020-09-11 12:00] VITALS: BP 128/81
--- NOTE | 2020-09-11 15:27 | NUR ---
DISCHARGE NOTES RECEIVED ORDER FROM DR. CLEMENS FOR DISCHARGE. PT IS IN STABLE CONDITION FOR D/C HOME/SELF-CARE. PATIENT NOTIFIED AND UNDERSTANDS, PT IS IN ACCEPTANCE OF DISCHARGE ORDERS. MEDICATION, DISCHARGE INSTRUCTIONS AND EDUCATION PROVIDED TO PATIENT. COVID PRECAUTIONS /EDUCATION PROVIDED TO PATIENT. WRITTEN PRESCRIPTION GIVEN TO PATIENT. BELONGINGS CHECKED AND SIGNED, SKIN CHECK DONE, SKIN INTACT. NO FC IN PLACE, IV TO RT FA REMOVED, TELE MONITOR REMOVED AND GIVEN TO SOLAR INSTALLATION MANAGER. PATIENT WAS PICKED UP BY SON VIA PRIVATE CAR, PATIENT WHEELED TO LOBBY AND WAS DISCHARGED IN STABLE CONDITION.
[2020-09-11] MEDS ORDERED: INSULIN GLARGINE, 100 UNIT/ML CARTRIDGE SQ SCH (22:00)
== END 2020-09-11 14:30 | disposition home or self-care (01) | DRG 177 ==
LOC: ER 08:36 → TELE1 23:36
PROVIDERS: ADMIT Nurse Practitioner Acute Care; ATTEND Nurse Practitioner Acute Care
PROC: XW033E5 Introduction of Remdesivir Anti-infective into Peripheral Vein, Percutaneous Approach, New Technology Group 5 (ICD-10-PCS; principal; 2020-09-05)
DX: U07.1 COVID-19 (principal); E43 Unspecified severe protein-calorie malnutrition; J12.89 Other viral pneumonia; J96.01 Acute respiratory failure with hypoxia; N17.0 Acute kidney failure with tubular necrosis; J15.9 Unspecified bacterial pneumonia; E87.1 Hypo-osmolality and hyponatremia; I12.9 Hypertensive chronic kidney disease with stage 1 through stage 4 chronic kidney disease, or unspecified chronic kidney disease; N18.9 Chronic kidney disease, unspecified; D50.9 Iron deficiency anemia, unspecified; F32.9 Major depressive disorder, single episode, unspecified; E11.22 Type 2 diabetes mellitus with diabetic chronic kidney disease; E11.42 Type 2 diabetes mellitus with diabetic polyneuropathy; E11.43 Type 2 diabetes mellitus with diabetic autonomic (poly)neuropathy; E78.5 Hyperlipidemia, unspecified; K31.84 Gastroparesis; Z79.84 Long term (current) use of oral hypoglycemic drugs; E86.1 Hypovolemia; E88.09 Other disorders of plasma-protein metabolism, not elsewhere classified; Z68.25 Body mass index [BMI] 25.0-25.9, adult; E11.65 Type 2 diabetes mellitus with hyperglycemia
CPT/HCPCS: 36415; 71045-TC; 80048-TC; 80053-TC; 80061-TC; 80076-TC; 81001; 82550-TC; 82570-TC; 82962-TC; 83540-TC; 83605-TC; 83615-TC; 83735-TC; 83970; 84100-TC; 84155; 84155-TC; 84165; 84300-TC; 84443-TC; 84484-TC; 85025-TC; 85378-TC; 85610-TC; 85730-TC; 86140-TC; 86850-TC; 87040-TC; 87081-TC; A4216; C9803; G0378; J0456; J0696; J1100; J1650; J1815; J2405; J2765; J7050; J7060; J8597; U0003

== ENCOUNTER 2021-07-01 13:28 | Emergency (ER) | payer MEDICARE ==
[~2021-07-01] VITALS: Ht 165.1 cm; Wt 70.3 kg
[~2021-07-01 13:28] MED LIST changes: -ESCI10TA PO; +TRAZ-252 PO
--- NOTE | 2021-07-01 14:10 | NUR ---
Patient came in to the er sent by PMD due to abnormal lab, K 6.4. on room air, breathing evenly and unlabored. connected to the monitor and pulse ox. kept comfortable, will continue to monitor accordingly.
[2021-07-01] MEDS ORDERED: ESCI10TA PO (14:12)
[2021-07-01] MEDS ORDERED: ATOR40TA PO (14:12)
[2021-07-01 14:13] VITALS: BP 132/88
[2021-07-01 14:16] LABS: BASOPHILS % (AUTO) 0.5 % (0.0-2.0); HEMATOCRIT 28 % (39-51); HEMOGLOBIN 9.2 g/dL (13.5-17.5); LYMPHOCYTES # (AUTO) 1.8 K/uL (0.8-4.8); LYMPHOCYTES % (AUTO) 35.6 % (20.0-44.0); MEAN CORPUSCULAR HGB CONC 33 g/dl (31.0-36.0); MEAN CORPUSCULAR VOLUME 95 fL (80-96); MONOCYTES # (AUTO) 0.5 K/uL (0.1-1.30); MONOCYTES % (AUTO) 10.3 % (2.0-12.0); NEUTROPHILS # (AUTO) 2.4 K/uL (1.8-8.9); NEUTROPHILS % (AUTO) 48.6 % (43.0-81.0); PLATELET COUNT (AUTO) 210 K/uL (150-450); RED BLOOD CELL COUNT(AUTO) 2.93 MIL/uL (4.5-6.0)
[2021-07-01 14:24] LABS: CALCIUM, SERUM 8.8 mg/dL (8.5-10.1); CARBON DIOXIDE 24 mmol/L (21-32); CHLORIDE 113 mmol/L (98-107); CREATININE 2.3 mg/dL (0.6-1.3); GLUCOSE 75 mg/dL (74-106); POTASSIUM 5.6 mmol/L (3.5-5.1); SODIUM SERUM 144 mmol/L (136-145); UREA NITROGEN, BLOOD 55 mg/dL (7-18)
[2021-07-01] MEDS ORDERED: FURO-145 PO (15:01)
--- NOTE | 2021-07-01 15:12 | NUR ---
IV removed. Catheter intact and site benign. Pressure and 4x4 applied to site. No bleeding noted.Patient discharged to home in stable condition. Written and verbal after care instructions given. Patient verbalizes understanding of instruction.
== END 2021-07-01 15:13 | disposition home or self-care (01) ==
LOC: ER 13:48
DX: E87.5 Hyperkalemia (principal); I10 Essential (primary) hypertension; E11.9 Type 2 diabetes mellitus without complications; E78.00 Pure hypercholesterolemia, unspecified; D64.9 Anemia, unspecified; Z90.89 Acquired absence of other organs; Z79.899 Other long term (current) drug therapy
CPT/HCPCS: 36415; 71045-TC; 80048-TC; 84484-TC; 85025-TC; 85730-TC

== ENCOUNTER 2021-12-05 15:52 | Emergency (ER) | payer BC, MEDICAID ==
[~2021-12-05] VITALS: Ht 167.6 cm; Wt 72.6 kg
[~2021-12-05 15:52] MED LIST changes: +ATOR40TA PO; +ESCI10TA PO; +FURO-145 PO
[2021-12-05 16:01] VITALS: BP 93/54
--- NOTE | 2021-12-05 17:37 | NUR ---
Patient discharged to home in stable condition. Written and verbal after care instructions given. Patient verbalizes understanding of instruction.
== END 2021-12-05 17:37 | disposition home or self-care (01) ==
LOC: ER 15:52
DX: H93.13 Tinnitus, bilateral (principal); R42 Dizziness and giddiness; E11.65 Type 2 diabetes mellitus with hyperglycemia; I10 Essential (primary) hypertension; E78.5 Hyperlipidemia, unspecified; E78.00 Pure hypercholesterolemia, unspecified; D64.9 Anemia, unspecified; Z90.89 Acquired absence of other organs; Z79.899 Other long term (current) drug therapy